=== PATIENT | female | born 1970 | race Hispanic/Latino ===

== ENCOUNTER 2020-05-01 03:22 | Emergency (ER) | payer OTHER, SELFPAY ==
[2020-05-01] MEDS ORDERED: MORPHINE SULFATE 4 MG/1ML SYG ONE (04:18)
[2020-05-01] MEDS ORDERED: ONDANSETRON HCL 4 MG/2 ML VIAL ONE (04:18)
[2020-05-01] MEDS ORDERED: SODIUM CHLORIDE 0.9% 1000ML 1,000 ML IV ONE (04:19)
[2020-05-01 05:04] LABS: BASOPHILS % (AUTO) 0.4 % (0.0-5.0); EOSINOPHILS % (AUTO) 0.8 % (0.0-8.0); HEMATOCRIT 44.4 % (36-48); LYMPHOCYTES % (AUTO) 8.4 % (21.0-51.0); MEAN CORPUSCULAR HEMOGLOBIN 29.5 pg (27.0-33.0); MEAN CORPUSCULAR HGB CONC 33.1 g/dL (32.0-36.0); MEAN CORPUSCULAR VOLUME 89.2 fL (79-99); MONOCYTES % (AUTO) 6.5 % (3.0-13.0); NEUTROPHILS % (AUTO) 82.8 % (40.0-77.0); PLATELET COUNT (AUTO) 287 K/uL (130-400); RED BLOOD CELL COUNT(AUTO) 4.98 MIL/uL (4.00-5.50); RED CELL DISTRIBUTION WIDTH 13.8 % (11.0-15.5); WHITE BLOOD COUNT (AUTO) 19.6 K/uL (4.8-10.8)
[2020-05-01 05:18] LABS: CREATININE 0.9 mg/dL (0.5-1.5); POTASSIUM 3.7 mmol/L (3.5-5.1)
[2020-05-01 05:22] LABS: ALBUMIN 3.6 g/dL (3.5-5.0); BILIRUBIN,TOTAL 0.5 mg/dL (0.2-1.0); TOTAL PROTEIN, SERUM 7.3 g/dL (6.0-8.3)
== END 2020-05-01 07:46 | disposition home or self-care (01) ==
LOC: EDH 03:22
DX: A08.4 Viral intestinal infection, unspecified (principal); I10 Essential (primary) hypertension; Z91.041 Radiographic dye allergy status
CPT/HCPCS: 36415; 74176; 80053; 82150; 83690; 84484; 85025; 87040 ×2; 93005; 96374; 96375; 99285; J2270; J2405; J7030

== ENCOUNTER 2024-08-18 02:08 | Inpatient (IN) | payer BC, SELFPAY ==
[~2024-08-18] VITALS: Ht 167.6 cm; Wt 100.7 kg
[2024-08-18 02:38] LABS: BASOPHILS # (AUTO) 0.05 K/uL (0.00-0.20); BASOPHILS % (AUTO) 0.2 % (0.0-5.0); EOSINOPHILS # (AUTO) 0.07 K/uL (0.00-0.70); EOSINOPHILS % (AUTO) 0.3 % (0.0-8.0); HEMATOCRIT 42.2 % (36-48); IMMATURE GRANULOCYTE ABSOLUTE 0.17 K/uL (0-1); LYMPHOCYTES # (AUTO) 1.7 K/uL (1.0-4.8); LYMPHOCYTES % (AUTO) 7.9 % (21.0-51.0); MEAN CORPUSCULAR HEMOGLOBIN 29.3 pg (27.0-33.0); MEAN CORPUSCULAR HGB CONC 32.9 g/dL (32.0-36.0); MEAN CORPUSCULAR VOLUME 88.8 fL (79-99); MONOCYTES # (AUTO) 1.8 K/uL (0.1-1.0); MONOCYTES % (AUTO) 8.4 % (3.0-13.0); NEUTROPHILS # (AUTO) 17.8 K/uL (1.8-7.7); NEUTROPHILS % (AUTO) 82.4 % (40.0-77.0); PLATELET COUNT (AUTO) 349 K/uL (130-400); RED BLOOD CELL COUNT(AUTO) 4.75 MIL/uL (4.00-5.50); RED CELL DISTRIBUTION WIDTH 13.2 % (11.0-15.5); WHITE BLOOD COUNT (AUTO) 21.6 K/uL (4.8-10.8)
[2024-08-18] MEDS: ketOROlac 15MG/ML VIAL (15MG/ML) IV ONE (02:39)
[2024-08-18 02:40] LABS: APPEARANCE,URINE CLOUDY (CLEAR); BILIRUBIN,URINE NEGATIVE (NEGATIVE); COLOR,URINE YELLOW (YELLOW); GLUCOSE, URINE (UA) NEGATIVE (NEGATIVE); KETONES,URINE 40 mg/dL (NEGATIVE); LEUKOCYTE ESTERASE ,URINE 75 Leu/uL (NEGATIVE); NITRATE,URINE NEGATIVE (NEGATIVE); OCCULT BLOOD,URINE MODERATE (NEGATIVE); PROTEIN,URINE 30 mg/dL (NEGATIVE); UROBILINOGEN,URINE 0.2 mg/dL (0.2-1.0)
[2024-08-18 02:43] LABS: BACTERIA,URINE RARE /HPF (None Seen); MUCUS,URINE RARE LPF (None Seen); SQUAMOUS EPITHELIAL CELL,UR MOD /HPF (0-2)
[2024-08-18 02:49] LABS: CREATININE 0.9 mg/dL (0.5-1.0); POTASSIUM 3.9 mmol/L (3.5-5.1)
[2024-08-18 03:41] LABS: WBC MORPHOLOGY CONSISTENT W/DIFF
[2024-08-18] MEDS: cefTRIAXone 1G VIAL IVPB ONE (03:59)
[2024-08-18] MEDS: [UNRECOGNIZED DRUG - OTHER] IV ONE (03:59)
[2024-08-18] MEDS: levoFLOXacin 500 MG/D5W 100 ML 100 ML IV STA (04:21)
[2024-08-18] MEDS: hydroMORPHone 0.5 MG SYG (0.5MG/0.5ML) IM ONE (04:22)
[2024-08-18] MEDS ORDERED: OMEP40CA21 PO (04:29)
[2024-08-18] MEDS ORDERED: METO-408 PO (04:29)
[2024-08-18] MEDS ORDERED: BUSP15TA3 PO (04:29)
[2024-08-18] MEDS ORDERED: METH-386 PO (04:29)
[2024-08-18] MEDS ORDERED: DULO30CA52 PO (04:29)
[2024-08-18] MEDS ORDERED: AEC81 PO (04:29)
[2024-08-18] MEDS ORDERED: LOSA1TAB37 PO (04:29)
[2024-08-18] MEDS: metRONIDazole 500MG/100ML BAG IV SCH (04:39)
[2024-08-18] MEDS: levoFLOXacin 500 MG/D5W 100 ML 100 ML IV SCH (06:00)
[2024-08-18] MEDS: metRONIDazole 500MG/100ML BAG 100 ML IV SCH (06:00)
[2024-08-18] MEDS ORDERED: MAGNESIUM 2GM PREMIX 50ML 50 ML IV PRN (06:30)
[2024-08-18] MEDS: 0.9%NACL 1000ML 1,000 ML IV SCH (07:47)
[2024-08-18 07:55] LABS: BASOPHILS # (AUTO) 0.03 K/uL (0.00-0.20); BASOPHILS % (AUTO) 0.2 % (0.0-5.0); EOSINOPHILS # (AUTO) 0.08 K/uL (0.00-0.70); EOSINOPHILS % (AUTO) 0.5 % (0.0-8.0); HEMATOCRIT 36.5 % (36-48); IMMATURE GRANULOCYTE ABSOLUTE 0.13 K/uL (0-1); LYMPHOCYTES # (AUTO) 1.2 K/uL (1.0-4.8); LYMPHOCYTES % (AUTO) 6.9 % (21.0-51.0); MEAN CORPUSCULAR HEMOGLOBIN 29.4 pg (27.0-33.0); MEAN CORPUSCULAR HGB CONC 33.4 g/dL (32.0-36.0); MONOCYTES # (AUTO) 1.8 K/uL (0.1-1.0); MONOCYTES % (AUTO) 10.1 % (3.0-13.0); NEUTROPHILS # (AUTO) 14.1 K/uL (1.8-7.7); NEUTROPHILS % (AUTO) 81.5 % (40.0-77.0); PLATELET COUNT (AUTO) 278 K/uL (130-400); RED BLOOD CELL COUNT(AUTO) 4.15 MIL/uL (4.00-5.50); RED CELL DISTRIBUTION WIDTH 13.3 % (11.0-15.5); WHITE BLOOD COUNT (AUTO) 17.3 K/uL (4.8-10.8)
[2024-08-18] MEDS: FAMOTIDINE 20MG VIAL IV SCH (07:59)
[2024-08-18 08:07] LABS: ALBUMIN 2.2 g/dL (3.5-5.0); BILIRUBIN,TOTAL 2.1 mg/dL (0.2-1.0); CREATININE 0.7 mg/dL (0.5-1.0); MAGNESIUM 2.3 mg/dL (1.80-2.40); POTASSIUM 3.5 mmol/L (3.5-5.1); TOTAL PROTEIN, SERUM 6.6 g/dL (6.0-8.3)
[2024-08-18 08:10] LABS: HEMOGLOBIN A1C 6.2 % (4.0-6.0)
[2024-08-18 08:25] VITALS: BP 143/76; PULSE 116; PULSE 64; RESP 16; TEMP 98.2
[2024-08-18] MEDS: ondanSETRON 4MG INJ IV PRN (10:50)
[2024-08-18] MEDS: morPHINE 2 MG SYG IV PRN (10:51)
[2024-08-18 12:00] VITALS: BP 151/75; PULSE 117; RESP 16; TEMP 99.2
[2024-08-18 15:09] VITALS: O2SAT 97
[2024-08-18 16:00] VITALS: BP 148/81; PULSE 111; RESP 16; TEMP 99.3
[2024-08-18] MEDS: morPHINE 4 MG SYG IV PRN (16:18)
[2024-08-18] MEDS ORDERED: ketOROlac 30MG VIAL (30MG/ML) IM PRN (17:30)
[2024-08-18] MEDS: fluCONazole 200 MG/NS 100 ML IV SCH (19:13)
[2024-08-18] MEDS: ZOSYN 3.375GM +NS 50ML IV SCH (19:13)
[2024-08-18 20:00] VITALS: BP 138/75; PULSE 109; RESP 18; TEMP 97.8; O2SAT 96
[2024-08-18] MEDS: duloXETine HCL 30 MG CAP PO SCH (20:06)
[2024-08-18] MEDS: busPIRone HCL 5 MG TABLET PO SCH (20:06)
[2024-08-18] MEDS: methIMAZOLE 10 MG TAB PO SCH (20:08)
[2024-08-18] MEDS: PoTASSium chloRIDE 20MEQ/100ML 100 ML IV PRN (23:06)
[2024-08-19] VITALS (9 sets, daily range): BP systolic 136–171; BP diastolic 78–95; PULSE 85–107; RESP 18–20; TEMP 97.9–99.2; O2SAT 96–97
[2024-08-19 05:41] LABS: CREATININE 0.8 mg/dL (0.5-1.0); POTASSIUM 3.1 mmol/L (3.5-5.1)
[2024-08-19] MEDS: hydroMORPHone 1 MG INJ IVP PRN (06:30)
[2024-08-19 07:45] LABS: HEMATOCRIT 40.8 % (36-48); MEAN CORPUSCULAR HEMOGLOBIN 29.6 pg (27.0-33.0); MEAN CORPUSCULAR HGB CONC 31.9 g/dL (32.0-36.0); MEAN CORPUSCULAR VOLUME 92.9 fL (79-99); PLATELET COUNT (AUTO) 345 K/uL (130-400); RED BLOOD CELL COUNT(AUTO) 4.39 MIL/uL (4.00-5.50); RED CELL DISTRIBUTION WIDTH 13.6 % (11.0-15.5); WHITE BLOOD COUNT (AUTO) 18.9 K/uL (4.8-10.8)
[2024-08-19] MEDS: ASPIRIN 81 MG EC TAB PO SCH (08:33)
[2024-08-19] MEDS: PoTASSium chloRIDE 20MEQ ER 20 MEQ ERTAB PO ONE ×2 (08:33→13:12)
[2024-08-19] MEDS: metOPROLol sucCINATE 25 MG TAB.SR.24H PO SCH (08:34)
[2024-08-19 10:07] LABS: BAND NEUTROPHILS % (MANUAL) 20 % (0-2); LYMPHOCYTES % (MANUAL) 8 % (22-44); MONOCYTES % (MANUAL) 2 % (2-9); REACTIVE LYMPHOCYTES 1 % (0-0); SEGMENTED NEUTROPHILS % 69 % (40-70); TOTAL CELLS COUNTED 100
[2024-08-19 10:08] LABS: MAN.DIFF COMMENT-IMPRESSION MANUAL DIFFERENTIAL; PLATELET MORPHOLOGY COMMENT ADEQUATE
[2024-08-20] VITALS (7 sets, daily range): BP systolic 142–156; BP diastolic 80–94; PULSE 84–105; RESP 16–19; TEMP 98.2–98.7; O2SAT 96–97
[2024-08-20 05:17] LABS: BASOPHILS # (AUTO) 0.05 K/uL (0.00-0.20); BASOPHILS % (AUTO) 0.3 % (0.0-5.0); EOSINOPHILS # (AUTO) 0.24 K/uL (0.00-0.70); EOSINOPHILS % (AUTO) 1.4 % (0.0-8.0); HEMATOCRIT 37.2 % (36-48); IMMATURE GRANULOCYTE ABSOLUTE 0.24 K/uL (0-1); LYMPHOCYTES # (AUTO) 1.7 K/uL (1.0-4.8); MEAN CORPUSCULAR HEMOGLOBIN 28.9 pg (27.0-33.0); MEAN CORPUSCULAR HGB CONC 31.7 g/dL (32.0-36.0); MEAN CORPUSCULAR VOLUME 91.2 fL (79-99); MONOCYTES # (AUTO) 1.1 K/uL (0.1-1.0); MONOCYTES % (AUTO) 6.6 % (3.0-13.0); NEUTROPHILS # (AUTO) 13.3 K/uL (1.8-7.7); NEUTROPHILS % (AUTO) 80.3 % (40.0-77.0); PLATELET COUNT (AUTO) 325 K/uL (130-400); RED BLOOD CELL COUNT(AUTO) 4.08 MIL/uL (4.00-5.50); RED CELL DISTRIBUTION WIDTH 13.2 % (11.0-15.5); WHITE BLOOD COUNT (AUTO) 16.6 K/uL (4.8-10.8)
[2024-08-20 05:35] LABS: BILIRUBIN,TOTAL 0.9 mg/dL (0.2-1.0); CREATININE 0.7 mg/dL (0.5-1.0); POTASSIUM 3.6 mmol/L (3.5-5.1); TOTAL PROTEIN, SERUM 6.6 g/dL (6.0-8.3)
[2024-08-20] MEDS: LOSARTAN/HYDROCHLOROTHIAZIDE 50-12.5MG TABLET PO SCH (09:22)
[2024-08-20] MEDS: PANTOPrazole 40 MG TAB DR PO SCH (09:22)
[2024-08-20] MEDS: PoTASSium chloRIDE 20MEQ ER 20 MEQ ERTAB PO ONE (09:23)
[2024-08-20 16:03] LABS: INR 1.11 (0.85-1.15); PROTHROMBIN TIME 11.9 SEC (9.6-11.6)
[2024-08-21] VITALS: BP 144/84; PULSE 71; RESP 18; TEMP 97.6
[2024-08-21 04:00] VITALS: BP 153/99; PULSE 74; RESP 18; TEMP 97.6
[2024-08-21 06:04] LABS: BASOPHILS # (AUTO) 0.04 K/uL (0.00-0.20); BASOPHILS % (AUTO) 0.4 % (0.0-5.0); EOSINOPHILS # (AUTO) 0.36 K/uL (0.00-0.70); EOSINOPHILS % (AUTO) 3.9 % (0.0-8.0); HEMATOCRIT 38.3 % (36-48); IMMATURE GRANULOCYTE ABSOLUTE 0.24 K/uL (0-1); LYMPHOCYTES # (AUTO) 1.7 K/uL (1.0-4.8); LYMPHOCYTES % (AUTO) 18.4 % (21.0-51.0); MEAN CORPUSCULAR HEMOGLOBIN 29.6 pg (27.0-33.0); MEAN CORPUSCULAR HGB CONC 32.6 g/dL (32.0-36.0); MEAN CORPUSCULAR VOLUME 90.8 fL (79-99); MONOCYTES # (AUTO) 0.6 K/uL (0.1-1.0); MONOCYTES % (AUTO) 6.6 % (3.0-13.0); NEUTROPHILS # (AUTO) 6.3 K/uL (1.8-7.7); NEUTROPHILS % (AUTO) 68.1 % (40.0-77.0); PLATELET COUNT (AUTO) 352 K/uL (130-400); RED BLOOD CELL COUNT(AUTO) 4.22 MIL/uL (4.00-5.50); WHITE BLOOD COUNT (AUTO) 9.3 K/uL (4.8-10.8)
[2024-08-21 06:27] LABS: ALBUMIN 2.2 g/dL (3.5-5.0); BILIRUBIN,TOTAL 0.6 mg/dL (0.2-1.0); CREATININE 0.7 mg/dL (0.5-1.0); POTASSIUM 3.7 mmol/L (3.5-5.1); TOTAL PROTEIN, SERUM 6.8 g/dL (6.0-8.3)
[2024-08-21 08:00] VITALS: BP 159/89; PULSE 86; RESP 19; TEMP 97.6; O2SAT 96
[2024-08-21 12:00] VITALS: BP 153/88; PULSE 74; RESP 19; TEMP 98.1
[2024-08-21 16:00] VITALS: BP 154/86; PULSE 76; RESP 18; TEMP 98.2
[2024-08-21 19:09] LABS: C DIFFICILE TOXIN A/B Not Detected (Not Detected); ENTEROAGGREGATIVE ECOLI Detected (Not Detected); GIARDIA LAMBLIA Not Detected (Not Detected); PLESIOMONAS SHIGELOIDES Not Detected (Not Detected); SAPOVIRUS Not Detected (Not Detected); SHIGELLA/ENTEROINVASIVE E COLI Not Detected (Not Detected); VIBRIO Not Detected (Not Detected); VIBRIO CHOLERAE Not Detected (Not Detected)
[2024-08-21 20:00] VITALS: BP 158/95; PULSE 76; RESP 18; TEMP 98.4; O2SAT 95
[2024-08-22] VITALS (8 sets, daily range): BP systolic 151–159; BP diastolic 80–104; PULSE 70–89; RESP 18; TEMP 97.8–98.9; O2SAT 94–99
[2024-08-23] VITALS (10 sets, daily range): BP systolic 145–164; BP diastolic 83–103; PULSE 69–83; RESP 18; TEMP 97.4–98.3; O2SAT 98–100
[2024-08-23 05:23] LABS: BASOPHILS # (AUTO) 0.06 K/uL (0.00-0.20); BASOPHILS % (AUTO) 0.7 % (0.0-5.0); EOSINOPHILS # (AUTO) 0.29 K/uL (0.00-0.70); EOSINOPHILS % (AUTO) 3.5 % (0.0-8.0); HEMATOCRIT 39.2 % (36-48); IMMATURE GRANULOCYTE ABSOLUTE 0.28 K/uL (0-1); LYMPHOCYTES # (AUTO) 2.8 K/uL (1.0-4.8); LYMPHOCYTES % (AUTO) 33.6 % (21.0-51.0); MEAN CORPUSCULAR HEMOGLOBIN 29.2 pg (27.0-33.0); MEAN CORPUSCULAR HGB CONC 32.1 g/dL (32.0-36.0); MEAN CORPUSCULAR VOLUME 90.7 fL (79-99); MONOCYTES # (AUTO) 0.8 K/uL (0.1-1.0); MONOCYTES % (AUTO) 9.1 % (3.0-13.0); NEUTROPHILS # (AUTO) 4.2 K/uL (1.8-7.7); NEUTROPHILS % (AUTO) 49.7 % (40.0-77.0); PLATELET COUNT (AUTO) 422 K/uL (130-400); RED BLOOD CELL COUNT(AUTO) 4.32 MIL/uL (4.00-5.50); RED CELL DISTRIBUTION WIDTH 12.7 % (11.0-15.5); WHITE BLOOD COUNT (AUTO) 8.3 K/uL (4.8-10.8)
[2024-08-23 05:32] LABS: ALBUMIN 2.3 g/dL (3.5-5.0); BILIRUBIN,TOTAL 0.5 mg/dL (0.2-1.0); CREATININE 0.7 mg/dL (0.5-1.0); POTASSIUM 3.1 mmol/L (3.5-5.1); TOTAL PROTEIN, SERUM 6.7 g/dL (6.0-8.3)
[2024-08-23] MEDS: hydrALAZine 20MG/ML VIAL IV PRN (06:43)
[2024-08-23] MEDS: 0.9%NACL 10ML VIAL IV SCH (08:25)
[2024-08-23] MEDS: amLODIPine 5 MG TAB PO ONE (16:52)
[2024-08-24 04:12] VITALS: BP 156/84; PULSE 85; RESP 18; TEMP 97.8
[2024-08-24 08:00] VITALS: BP 152/85; PULSE 75; RESP 18; TEMP 98.4; O2SAT 98
[2024-08-24] MEDS: amLODIPine 5 MG TAB PO SCH (08:39)
[2024-08-24 12:00] VITALS: BP 148/76; PULSE 70; RESP 18; TEMP 98.1
[2024-08-24 16:00] VITALS: BP 145/83; PULSE 72; RESP 18; TEMP 97.6
[2024-08-24] MEDS ORDERED: AMLO5TAB4 PO (16:13)
== END 2024-08-24 16:44 | disposition home or self-care (01) | DRG 871 ==
LOC: EDH 02:08 → EDHIP 05:58 → 3CH 08:25
PROVIDERS: ADMIT Internal Medicine; ATTEND Internal Medicine
PROC: 05HB33Z Insertion of Infusion Device into Right Basilic Vein, Percutaneous Approach (ICD-10-PCS; principal; 2024-08-21)
PROC: B54MZZA Ultrasonography of Right Upper Extremity Veins, Guidance (ICD-10-PCS; 2024-08-21)
DX: A41.9 Sepsis, unspecified organism (principal); K65.1 Peritoneal abscess; K57.20 Diverticulitis of large intestine with perforation and abscess without bleeding; N30.00 Acute cystitis without hematuria; F41.9 Anxiety disorder, unspecified; F32.A Depression, unspecified; E66.01 Morbid (severe) obesity due to excess calories; I10 Essential (primary) hypertension; E87.6 Hypokalemia; I80.8 Phlebitis and thrombophlebitis of other sites; E11.649 Type 2 diabetes mellitus with hypoglycemia without coma; E05.90 Thyrotoxicosis, unspecified without thyrotoxic crisis or storm; Z82.49 Family history of ischemic heart disease and other diseases of the circulatory system; Z90.710 Acquired absence of both cervix and uterus; Z90.49 Acquired absence of other specified parts of digestive tract; Z98.51 Tubal ligation status; Z83.3 Family history of diabetes mellitus; Z79.899 Other long term (current) drug therapy; Z68.35 Body mass index [BMI] 35.0-35.9, adult
CPT/HCPCS: 36415; 36569; 74176; 77012; 80048; 80053; 81001; 82270; 82550; 82948; 83036; 83605; 83735; 84145; 84484; 85025; 85610; 87040; 87046; 87086; 87507; 93971; 96365; 96366; 96372; 96375; 96376; 99291; C1894; G0378; J0360; J0696; J1171; J1450; J1885; J1956; J2270; J2405; J2543; J3480; J3490; J7030; C1750; G8980-CI; G8983-CI

== ENCOUNTER 2024-09-03 12:52 | Emergency (ER) | payer BC ==
[~2024-09-03] VITALS: Ht 167.6 cm; Wt 99.8 kg
[~2024-09-03 12:52] MED LIST: AEC81 PO; AMLO5TAB4 PO; BUSP15TA3 PO; DULO30CA52 PO; LOSA1TAB37 PO; METH-386 PO; METO-408 PO; OMEP40CA21 PO
[2024-09-03 14:05] VITALS: BP 155/91; PULSE 86; RESP 16; TEMP 98.1; O2SAT 98
== END 2024-09-03 15:15 | disposition home or self-care (01) ==
LOC: EDH 12:52
DX: T82.534A Leakage of infusion catheter, initial encounter (principal); F41.9 Anxiety disorder, unspecified; I10 Essential (primary) hypertension; Z79.82 Long term (current) use of aspirin; Z79.899 Other long term (current) drug therapy; Z90.49 Acquired absence of other specified parts of digestive tract; Z90.710 Acquired absence of both cervix and uterus; Y82.9 Unspecified medical devices associated with adverse incidents; Y92.89 Other specified places as the place of occurrence of the external cause
CPT/HCPCS: 99282

== ENCOUNTER 2024-09-09 22:36 | Emergency (ER) | payer BC ==
[~2024-09-09] VITALS: Ht 167.6 cm; Wt 99.8 kg
[2024-09-10 00:18] VITALS: BP 128/83; PULSE 81; RESP 18; TEMP 97.3; O2SAT 98
== END 2024-09-10 00:19 | disposition home or self-care (01) ==
LOC: EDH 22:36
DX: T82.838A Hemorrhage due to vascular prosthetic devices, implants and grafts, initial encounter (principal); F41.9 Anxiety disorder, unspecified; I10 Essential (primary) hypertension; Z79.82 Long term (current) use of aspirin; Z79.899 Other long term (current) drug therapy; Z90.49 Acquired absence of other specified parts of digestive tract; Z90.710 Acquired absence of both cervix and uterus; X58.XXXA Exposure to other specified factors, initial encounter
CPT/HCPCS: 99281

== ENCOUNTER 2024-09-10 15:46 | Emergency (ER) | payer BC ==
[~2024-09-10] VITALS: Ht 167.6 cm; Wt 99.8 kg
[2024-09-10 15:51] VITALS: BP 150/89; PULSE 90; RESP 16; TEMP 97.7
== END 2024-09-10 16:46 | disposition home or self-care (01) ==
LOC: EDH 15:46
DX: T82.898A Other specified complication of vascular prosthetic devices, implants and grafts, initial encounter (principal); F41.9 Anxiety disorder, unspecified; I10 Essential (primary) hypertension; Z79.82 Long term (current) use of aspirin; Z79.899 Other long term (current) drug therapy; Z90.49 Acquired absence of other specified parts of digestive tract; Z90.710 Acquired absence of both cervix and uterus; Z98.890 Other specified postprocedural states; Y65.8 Other specified misadventures during surgical and medical care; Y92.89 Other specified places as the place of occurrence of the external cause
CPT/HCPCS: 99282

== ENCOUNTER 2024-09-18 21:51 | Emergency (ER) | payer BC ==
[~2024-09-18] VITALS: Ht 167.6 cm; Wt 99.8 kg
[2024-09-18 22:05] VITALS: TEMP 98.7
[2024-09-18 22:10] LABS: APPEARANCE,URINE CLOUDY (CLEAR); BILIRUBIN,URINE NEGATIVE (NEGATIVE); COLOR,URINE YELLOW (YELLOW); GLUCOSE, URINE (UA) NEGATIVE (NEGATIVE); KETONES,URINE 10 mg/dL (NEGATIVE); LEUKOCYTE ESTERASE ,URINE 250 Leu/uL (NEGATIVE); NITRATE,URINE NEGATIVE (NEGATIVE); OCCULT BLOOD,URINE SMALL (NEGATIVE); PH,URINE 5.5 (5.0-8.0); PROTEIN,URINE 50 mg/dL (NEGATIVE); UROBILINOGEN,URINE 0.2 mg/dL (0.2-1.0)
[2024-09-18 22:16] LABS: ADD UA MICROSCOPIC YES
[2024-09-18 22:17] LABS: BACTERIA,URINE RARE /HPF (None Seen); MUCUS,URINE FEW LPF (None Seen); OTHER CASTS, URINE 3 /LPF (None Seen); SQUAMOUS EPITHELIAL CELL,UR MOD /HPF (0-2); UNCLASSIFIED CRYSTAL 16 /HPF (None Seen)
[2024-09-18] MEDS: morPHINE 4 MG SYG IVP ONE (22:27)
[2024-09-18] MEDS: ondanSETRON 4MG INJ IVP ONE ×2 (22:27→23:13)
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
[2024-09-18 22:33] LABS: BASOPHILS # (AUTO) 0.03 K/uL (0.00-0.20); BASOPHILS % (AUTO) 0.3 % (0.0-5.0); EOSINOPHILS # (AUTO) 0.27 K/uL (0.00-0.70); EOSINOPHILS % (AUTO) 2.6 % (0.0-8.0); IMMATURE GRANULOCYTE ABSOLUTE 0.06 K/uL (0-1); LYMPHOCYTES # (AUTO) 2.2 K/uL (1.0-4.8); LYMPHOCYTES % (AUTO) 21.1 % (21.0-51.0); MEAN CORPUSCULAR HEMOGLOBIN 29.5 pg (27.0-33.0); MEAN CORPUSCULAR HGB CONC 32.8 g/dL (32.0-36.0); MEAN CORPUSCULAR VOLUME 89.8 fL (79-99); MONOCYTES # (AUTO) 0.7 K/uL (0.1-1.0); MONOCYTES % (AUTO) 6.5 % (3.0-13.0); NEUTROPHILS # (AUTO) 7.1 K/uL (1.8-7.7); NEUTROPHILS % (AUTO) 68.9 % (40.0-77.0); PLATELET COUNT (AUTO) 267 K/uL (130-400); RED BLOOD CELL COUNT(AUTO) 5.12 MIL/uL (4.00-5.50); WHITE BLOOD COUNT (AUTO) 10.2 K/uL (4.8-10.8)
[2024-09-18 22:36] LABS: CREATININE 0.9 mg/dL (0.5-1.0); POTASSIUM 3.5 mmol/L (3.5-5.1)
[2024-09-18 22:48] LABS: ALBUMIN 3.8 g/dL (3.5-5.0); BILIRUBIN,DIRECT 0.2 mg/dL (0.0-0.3); TOTAL PROTEIN, SERUM 7.9 g/dL (6.0-8.3)
[2024-09-18] MEDS: ketOROlac 30MG VIAL (30MG/ML) IVP ONE (22:54)
[2024-09-18] MEDS ORDERED: IOHEXOL 350 MG/ML 100ML INFUS..BTL IV ONE (23:09)
--- NOTE | 2024-09-18 23:40 | HMCIMG ---
CT ABDOMEN/PELVIS W/CONTRAST HISTORY: Pain COMPARISON: 08/19/2024 TECHNIQUE: Multiple sequential axial images of the abdomen and pelvis were obtained from the dome of the diaphragm through symphysis pubis. Patient was given 100 cc of Omnipaque through intravenous route. Oral contrast was not given. FINDINGS: No pleural effusion is seen bilaterally. There is no evidence of parenchymal disease or pulmonary nodule of the visualized lower lungs. Degenerative changes of the thoracolumbar spine are present. The heart is not enlarged. Liver measures 16.2 cm. The liver, spleen, adrenal glands and pancreas are unremarkable. There is no evidence of hydronephrosis bilaterally. No evidence of renal stone is seen. Fecal material is seen in the colon. There are normal size retroperitoneal and mesenteric lymph nodes. No ascites is seen. Atherosclerotic changes are present. There is mild sigmoid colon wall thickening with adjacent fat stranding suspicious for acute sigmoid diverticulitis. No focal abscess is seen. Pelvic sidewalls are symmetric bilaterally. Bladder is poorly distended. If there is clinical suspicion for cystitis, urinalysis correlation may be helpful IMPRESSION: 1. There is mild sigmoid colon wall thickening with adjacent fat stranding suspicious for acute sigmoid diverticulitis. No focal abscess is seen. CT was performed with one or more following dose reduction techniques: automated exposure control, adjustment of the mA and kv according to patient's size, or use of a iterative reconstruction technique.
[2024-09-19 00:36] VITALS: BP 148/83; PULSE 81; RESP 20; O2SAT 100
== END 2024-09-19 00:41 | disposition home or self-care (01) ==
LOC: EDH 21:51
DX: K57.32 Diverticulitis of large intestine without perforation or abscess without bleeding (principal); F41.9 Anxiety disorder, unspecified; F32.A Depression, unspecified; I10 Essential (primary) hypertension; Z79.82 Long term (current) use of aspirin; Z79.899 Other long term (current) drug therapy; Z90.49 Acquired absence of other specified parts of digestive tract; Z90.710 Acquired absence of both cervix and uterus
CPT/HCPCS: 99284; 74177; 96374; 96375; 80076; 80048; 83690; 85025; 87086 ×2; 87186; 81001; 36415; 96376; J2405 ×2; J2270; J1885; Q9967

== ENCOUNTER 2024-10-06 13:00 | Emergency (ER) | payer OTHER, BC ==
[~2024-10-06] VITALS: Ht 167.6 cm; Wt 99.8 kg
[2024-10-06 13:04] VITALS: BP 141/78
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
[2024-10-06] MEDS ORDERED: IBUP-2077 PO (13:33)
[2024-10-06] MEDS ORDERED: CYCL-309 PO (13:33)
[2024-10-06] MEDS: CYCLOBENZAPRINE HCL 10 MG TABLET PO ONE (13:38)
[2024-10-06] MEDS: ibuPROFEN 800 MG TAB PO ONE (13:38)
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
[2024-10-06 14:03] VITALS: PULSE 77; RESP 15; TEMP 98.1; O2SAT 100
== END 2024-10-06 14:20 | disposition home or self-care (01) ==
LOC: EDH 13:00
DX: S16.1XXA Strain of muscle, fascia and tendon at neck level, initial encounter (principal); I10 Essential (primary) hypertension; F41.9 Anxiety disorder, unspecified; F32.A Depression, unspecified; Z79.82 Long term (current) use of aspirin; Z79.899 Other long term (current) drug therapy; Z90.49 Acquired absence of other specified parts of digestive tract; Z90.710 Acquired absence of both cervix and uterus; Z98.890 Other specified postprocedural states; V49.9XXA Car occupant (driver) (passenger) injured in unspecified traffic accident, initial encounter; Y93.89 Activity, other specified; Y92.488 Other paved roadways as the place of occurrence of the external cause; Y99.8 Other external cause status
CPT/HCPCS: 72040; 99283

== ENCOUNTER 2024-10-25 07:49 | Inpatient (IN) | payer BC ==
[~2024-10-25] VITALS: Ht 167.6 cm; Wt 99.0 kg
[~2024-10-25 07:49] MED LIST changes: +CYCL-309 PO; +IBUP-2077 PO
[2024-10-25] MEDS ORDERED: IOHEXOL 350 MG/ML 100ML INFUS..BTL IV ONE (07:59)
--- NOTE | 2024-10-25 08:09 | ERN ---
General Chief Complaint: Abdominal Pain Stated Complaint: LLQ PAIN Time Seen by MD: 07:51 History of Present Illness Initial Comments 54F, hx diverticulitis, presents for left lower quadrant tenderness. Patient reports that yesterday she noticed some left lower quadrant tenderness. She was constipated initially and then had a few episodes of loose stools. She also reports some suprapubic discomfort. She denies any nausea or vomiting. She denies any fever, but she does report feeling generally weak. She reports that she had a complicated diverticulitis few months ago which had an abscess and she required IV antibiotics through a PICC line for almost a month. She reports that she has been feeling well since but is worried that she may have a flare-up of the diverticulitis. Allergies: Coded Allergies: No Known Allergies (Unverified Allergy, Unknown, 08/18/24) Home Meds Active Scripts Ibuprofen (Ibuprofen 800 mg Tab) 800 Mg Tab, 800 MG PO Q8H PRN for fever or pa in, #30 TAB 0 Refills Prov:JOSI HAYNES NP 10/06/24 Cyclobenzaprine HCl (Cyclobenzaprine HCl) 10 Mg Tablet, 1 TAB PO TID for muscle spasms for 10 Days, #30 TAB 0 Refills Prov:JOSI HAYNES NP 10/06/24 Amlodipine Besylate (Norvasc 5Mg Tab) 5 Mg Tablet, 5 MG PO DAILY for 30 Days, #30 TAB Prov:SUKUMAR HOLLIS [employer] 08/24/24 Reported Medications Aspirin (ASPIRIN 81 MG ECTAB) 81 Mg Ectab, 81 MG PO DAILY, TAB.EC 08/18/24 Duloxetine HCl (Duloxetine HCl) 30 Mg Capsule.dr, 30 MG PO BID, CAP 08/18/24 Metoprolol Succinate (Metoprolol Succinate) 25 Mg Tab.er.24h, 25 MG PO DAILY, TAB 08/18/24 Methimazole (Methimazole) 5 Mg Tablet, 5 MG PO TID, TAB 08/18/24 Omeprazole (Omeprazole) 40 Mg Capsule.dr, 40 MG PO DAILY, CAP 08/18/24 Buspirone HCl (Buspirone HCl) 15 Mg Tablet, 15 MG PO BID, TAB 08/18/24 Losartan/Hydrochlorothiazide (Losartan-Hctz 50-12.5 mg Tab) 50 Mg-12.5 Mg Tablet, 1 EACH PO DAILY, TAB 08/18/24 Past Medical History Past Medical History: Anxiety, Depression, Diverticulitis, UTI Medical History Other: E-COLI Past Surgical History: Hysterectomy, Cholecystectomy, BTL Surgical History Other: RT 5TH DIGIT SX Female( History) History: Not Applicable ROS Dictation CONSTITUTIONAL: No chills, no fever, no weakness, no diaphoresis, no malaise. HEAD/FACE: No signs of trauma. EENT: No eye pain, no blurred vision, no tearing, no double vision, no ear pain, no ear discharge, no nose pain, no nasal congestion, no throat pain, no throat swelling, no mouth pain. RESPIRATORY: No cough, no orthopnea, no SOB, no stridor, no wheezing. CARDIOVASCULAR: No chest pain, no edema, no palpitations, no syncope. GASTROINTESTINAL/ABDOMINAL: Left lower quadrant pain, diarrhea GENITOURINARY: No abnormal discharge, no dysuria, no frequent urination, no hematuria. No complaints of pain in the genitals. MUSCULOSKELETAL: No back pain, no gout, no joint pain, no joint swelling, no muscle pain, no muscle stiffness, no neck pain. INTEGUMENTARY: No change in color, no change in hair/nails, no dryness, no lesion, no lumps, no rash. NEUROLOGICAL/PSYCH: No anxiety, not depressed, no emotional problem, no headache, no numbness, no pre-existing deficit, no history of seizures, no tremors, no weakness. HEMATOLOGIC/LYMPHATIC: Not anemic, no history of blood clots, no apparent bleeding, no bruising, glands not swollen. All Systems Negative, Except as Noted. Physical Exam Physical Exam Dictation VITAL SIGNS: Reviewed. GENERAL APPEARANCE: Alert, oriented x3, no acute distress, obese. HEAD AND FACE: Non-traumatic. EYES: PERRL, pink conjunctivas, eyelid no trauma, anterior chamber clear. EARS: Pinnas intact and no signs of trauma or erythema. Ear canals clear and no discharge. TMs no erythema. NOSE: No discharge, no bleeding. OROPHARYNX: Mouth normal, teeth no caries, tongue pink. Pharynx clear, no erythema. Tonsils no exudates, no abscesses noted. Mucous membrane moist. NECK: Supple, non-tender, no thyromegaly, no masses, no JVD, no bruits. BREAST: Deferred. CHEST: No tenderness, no crepitus, no paradoxical movement, no retractions. LUNGS: Clear, well-ventilated, symmetric, no rales, no wheezing, no rhonchi, no stridor, good breath sounds bilaterally. HEART: Regular rate, regular rhythm, no murmur, no gallops. VASCULAR: No peripheral edema. ABDOMEN: Left lower quadrant tenderness. RECTAL: Deferred. GENITAL: Deferred. NEUROLOGICAL: Normal speech, gross motor function intact, gross sensory function intact. MUSCULOSKELETAL: Neck nontender, full range of motion, back nontender, full range of motion. EXTREMITIES: Nontender, full range of motion. SKIN: Color pink, dry, no turgor, no rash, no lacerations, no abrasions, no contusions. LYMPHATICS: Deferred. Results Laboratory and Microbiology Lab and Micro Result Laboratory Tests Test 10/25/24 08:43 10/25/24 08:47 Urine Color DARK-YELLOW (YELLOW) Urine Appearance CLOUDY (CLEAR) H Urine pH 6.0 (5.0-8.0) Urine Specific [place] 1.028 (1.001-1.031) Urine Protein 70 mg/dL (NEGATIVE) H Urine Glucose (UA) NEGATIVE mg/dL (NEGATIVE) Urine Ketones 5 mg/dL (NEGATIVE) H Urine Occult Blood SMALL (NEGATIVE) H Urine Nitrate NEGATIVE (NEGATIVE) Urine Bilirubin 0.5 mg/dL (NEGATIVE) H Urine Urobilinogen 4.0 mg/dL (0.2-1.0) H Urine Leukocyte Esterase 500 Diane/uL (NEGATIVE) H Urine RBC 11-25 /HPF (0-1) H Urine WBC 51-100 /HPF (0-1) H Urine Squamous Epithelial Cells MANY /HPF (0-2) Urine Bacteria RARE /HPF (None Seen) White Blood Count 15.7 K/uL (4.8-10.8) H Red Blood Count 4.49 MIL/uL (4.00-5.50) Hemoglobin 13.1 g/dL (12.0-16.0) Hematocrit 40.7 % (36-48) Mean Corpuscular Volume 90.6 fL (79-99) Mean Corpuscular Hemoglobin 29.2 pg (27.0-33.0) Mean Corpuscular Hemoglobin Concent 32.2 g/dL (32.0-36.0) Red Cell Distribution Width 14.2 % (11.0-15.5) Platelet Count 327 K/uL (130-400) Mean Platelet Volume 9.9 fL (7.5-10.5) Immature Granulocyte % (Auto) 0.8 % (0-1) Neutrophils (%) (Auto) 80.4 % (40.0-77.0) H Lymphocytes (%) (Auto) 9.4 % (21.0-51.0) L Monocytes (%) (Auto) 8.4 % (3.0-13.0) Eosinophils (%) (Auto) 0.7 % (0.0-8.0) Basophils (%) (Auto) 0.3 % (0.0-5.0) Neutrophils # (Auto) 12.6 K/uL (1.8-7.7) H Lymphocytes # (Auto) 1.5 K/uL (1.0-4.8) Monocytes # (Auto) 1.3 K/uL (0.1-1.0) H Eosinophils # (Auto) 0.11 K/uL (0.00-0.70) Basophils # (Auto) 0.04 K/uL (0.00-0.20) Absolute Immature Granulocyte (auto 0.12 K/uL (0-1) Nucleated Red Blood Cells 0.0 % (0.0-0.19) Sodium Level 140 mmol/L (136-145) Potassium Level 3.4 mmol/L (3.5-5.1) L Chloride Level 102 mmol/L (101-111) Carbon Dioxide Level 32 mmol/L (21-32) Blood Urea Nitrogen 12 mg/dL (7-18) Creatinine 0.8 mg/dL (0.5-1.0) Glomerular Filtration Rate Calc 86 mL/min (>90) Random Glucose 127 mg/dL (70-105) H Total Calcium 8.8 mg/dL (8.5-10.1) Total Bilirubin 1.6 mg/dL (0.2-1.0) H Direct Bilirubin 0.5 mg/dL (0.0-0.3) H Aspartate Amino Transf (AST/SGOT) 101 U/L (10-37) H Alanine Aminotransferase (ALT/SGPT) 82 U/L (12-78) H Alkaline Phosphatase 222 U/L (50-136) H Troponin I High Sensitivity < 4 ng/L (4-50) L Total Protein 7.4 g/dL (6.0-8.3) Albumin 3.0 g/dL (3.5-5.0) L Lipase 21 U/L (16-77) MDM CC: LLQ pain, diarrhea Historian: Patient Comorbidities: History of diverticulitis, anxiety, depression, hypothyroid, hypertension Limitations by social determinants of health: None Differential diagnosis: Diverticulitis, gastroenteritis, colitis, surgical pathology, SIRS, sepsis, other. External chart review: I reviewed the cannulas history and physical from August 18, 2024. At that time she had a similar presentation and was diagnosed with acute diverticulitis of the large intestine with an abscess. She was discharged on 08/24/2024 from this facility. I reviewed the discharge notes. She was diagnosed with a acute diverticulitis of large intestine is with abscess unsuccessful for aspiration and percutaneous drainage. Patient at that time was discharged with three weeks of IV antibiotics as an outpatient with Dr. Horta. She completed this course. Vital signs: Stable, remained stable in the ER. Labs (independently ordered and independently interpreted by me ): Leukocytosis 15.7 1000 left shift 80% neutrophils. No bands. No anemia. Metabolic panels unremarkable. Mild transaminitis. Mild elevation T bili 1.6. Lipase is normal. UA does show leukocyte esterase, possibly due to the diverticulitis. CT of the abdomen and pelvis with contrast (Independently interpreted by me ): significant for likely diverticulitis. I do not see any free air perforation. Possibly an abscess. Patient received 1 L normal saline, 4 mg of morphine IV, 4 mg of ondansetron IV, and was started on Zosyn 3.375 q.8h IV. We will admit for IV antibiotics and consultation. Patient updated, agrees with the plan Consultation: Hospitalist for admission. CT ABDOMEN/PELVIS W/CONTRAST REASON: Abdominal Pain COMPARISON: 08/18/2024 TECHNIQUE: Images are obtained from lung bases to symphysis pubis following IV contrast, 100 cc Omnipaque 350. FINDINGS: Lung bases are clear. There are no focal liver lesions. There are normal-appearing kidneys.. Spleen and pancreas appear unremarkable. There has been a previous cholecystectomy. There is moderate diverticulosis of the sigmoid colon. There are inflammatory changes in the mid sigmoid colon consistent with acute diverticulitis. There is a focal fluid collection which appears to be in the wall of the mid sigmoid colon, consistent with abscess, this measures 2.6 x 1.6 cm. There is no free air or fluid to suggest perforation. Colon appears otherwise unremarkable. There is no evidence of obstruction. There has been a previous appendectomy. There is no evidence of free fluid or intraperitoneal air. There are no focal fluid collections. Aorta and retroperitoneum appear normal as do pelvic soft tissue structures. The anterior abdominal wall is intact. Osseous structures appear unremarkable. IMPRESSION: 1. Findings consistent with diverticulitis of the mid sigmoid colon. 2. There is a focal fluid collection and the wall of the sigmoid, 1.6 x 2.6 cm which may be an early diverticular abscess. 3. Absent gallbladder and appendix. ED Course Orders Procedure Category Date Status Time Cbc With Differential LAB 10/25/24 In Process 07:54 Troponin I High LAB 10/25/24 Complete Sensitivity 07:54 Urinalysis Profile LAB 10/25/24 Complete 07:54 Ct Abdomen/Pelvis CT 10/25/24 Resulted W/Contrast 07:54 Lipase LAB 10/25/24 Complete 07:54 Basic Metabolic Panel LAB 10/25/24 Complete 07:54 Hepatic Function Panel LAB 10/25/24 Complete 07:54 Iohexol (Omnipaque) PHA 10/25/24 Complete 07:59 0.9%Nacl 1000ml (Ns PHA 10/25/24 Complete 1000ml) 08:30 Morphine 4mg Syg PHA 10/25/24 Complete (Morphine 4mg Syg) 08:30 Ondansetron 4mg Inj PHA 10/25/24 Complete (Zofran 4mg Inj) 09:00 Culture Urine KEARA 10/25/24 In Process 09:31 Zosyn 3.375gm+Ns 50ml PHA 10/25/24 In Process (Zosyn 3.375gm+Ns 11:00 Current Medications Medications (Trade) Dose Ordered Sig/Abbe Route PRN Reason Start Time Stop Time Status Last Admin Dose Admin Iohexol (Omnipaque) 35,000 mg STK-MED ONCE IV 10/25/24 07:59 10/25/24 07:59 DC Morphine Sulfate (morPHINE 4MG SYG) 4 mg ONCE ONCE IVP 10/25/24 08:30 10/25/24 08:31 DC 10/25/24 08:57 Ondansetron HCl (zoFRAN 4MG INJ) 4 mg ONCE ONCE IVP 10/25/24 09:00 10/25/24 09:01 DC 10/25/24 08:56 Piperacillin Sod/ Tazobactam Sod (Zosyn 3.375gm+NS 50ml) 3.375 gm Q8H IV 10/25/24 11:00 11/04/24 10:59 10/25/24 11:11 Sodium Chloride 1,000 ml @ 0 mls/hr ONCE ONCE IV 10/25/24 08:30 10/25/24 08:31 DC 10/25/24 09:59 Vital Signs Date Time Temp Pulse Resp B/P (MAP) Pulse Ox O2 Delivery O2 Flow Rate FiO2 10/25/24 11:00 98.8 61 18 119/61 99 Room Air* 0 21 10/25/24 10:00 98.8 61 18 117/60 99 Room Air* 0 21 10/25/24 09:00 98.8 69 18 120/62 99 Room Air* 0 21 10/25/24 08:00 98.8 68 18 121/66 99 Room Air* 0 21 10/25/24 07:50 98.2 95 16 119/72 99 Room Air 0 DX & DISP Disposition: Inpatient Departure Impression: Primary Impression: Diverticulitis of large intestine with abscess Additional Impression: UTI (urinary tract infection) Condition: Stable Referrals: RONNELL VILLALPANDO DO (PCP) JOHNNY CARVAJAL DO Oct 25, 2024 08:09
[2024-10-25] MEDS: ondanSETRON 4MG INJ IVP ONE (08:56)
[2024-10-25] MEDS: morPHINE 4 MG SYG IVP ONE (08:57)
[2024-10-25 09:02] LABS: BASOPHILS # (AUTO) 0.04 K/uL (0.00-0.20); BASOPHILS % (AUTO) 0.3 % (0.0-5.0); EOSINOPHILS # (AUTO) 0.11 K/uL (0.00-0.70); EOSINOPHILS % (AUTO) 0.7 % (0.0-8.0); HEMATOCRIT 40.7 % (36-48); IMMATURE GRANULOCYTE ABSOLUTE 0.12 K/uL (0-1); LYMPHOCYTES # (AUTO) 1.5 K/uL (1.0-4.8); LYMPHOCYTES % (AUTO) 9.4 % (21.0-51.0); MEAN CORPUSCULAR HEMOGLOBIN 29.2 pg (27.0-33.0); MEAN CORPUSCULAR HGB CONC 32.2 g/dL (32.0-36.0); MEAN CORPUSCULAR VOLUME 90.6 fL (79-99); MONOCYTES # (AUTO) 1.3 K/uL (0.1-1.0); MONOCYTES % (AUTO) 8.4 % (3.0-13.0); NEUTROPHILS # (AUTO) 12.6 K/uL (1.8-7.7); NEUTROPHILS % (AUTO) 80.4 % (40.0-77.0); PLATELET COUNT (AUTO) 327 K/uL (130-400); RED BLOOD CELL COUNT(AUTO) 4.49 MIL/uL (4.00-5.50); RED CELL DISTRIBUTION WIDTH 14.2 % (11.0-15.5); WHITE BLOOD COUNT (AUTO) 15.7 K/uL (4.8-10.8)
[2024-10-25 09:15] LABS: CREATININE 0.8 mg/dL (0.5-1.0); POTASSIUM 3.4 mmol/L (3.5-5.1)
[2024-10-25 09:26] LABS: APPEARANCE,URINE CLOUDY (CLEAR); BILIRUBIN,URINE 0.5 mg/dL (NEGATIVE); COLOR,URINE DARK-YELLOW (YELLOW); GLUCOSE, URINE (UA) NEGATIVE (NEGATIVE); KETONES,URINE 5 mg/dL (NEGATIVE); LEUKOCYTE ESTERASE ,URINE 500 Leu/uL (NEGATIVE); NITRATE,URINE NEGATIVE (NEGATIVE); OCCULT BLOOD,URINE SMALL (NEGATIVE); PROTEIN,URINE 70 mg/dL (NEGATIVE)
[2024-10-25 09:27] LABS: BILIRUBIN,DIRECT 0.5 mg/dL (0.0-0.3); BILIRUBIN,TOTAL 1.6 mg/dL (0.2-1.0); TOTAL PROTEIN, SERUM 7.4 g/dL (6.0-8.3)
[2024-10-25 09:31] LABS: ADD UA MICROSCOPIC YES
[2024-10-25 09:39] LABS: BACTERIA,URINE RARE /HPF (None Seen); MUCUS,URINE MANY LPF (None Seen); SQUAMOUS EPITHELIAL CELL,UR MANY /HPF (0-2); WBC,URINE 51-100 /HPF (0-1)
[2024-10-25] MEDS: 0.9%NACL 1000ML 1,000 ML IV ONE (09:59)
--- NOTE | 2024-10-25 11:07 | HMCIMG ---
CT ABDOMEN/PELVIS W/CONTRAST REASON: Abdominal Pain COMPARISON: 08/18/2024 TECHNIQUE: Images are obtained from lung bases to symphysis pubis following IV contrast, 100 cc Omnipaque 350. FINDINGS: Lung bases are clear. There are no focal liver lesions. There are normal-appearing kidneys.. Spleen and pancreas appear unremarkable. There has been a previous cholecystectomy. There is moderate diverticulosis of the sigmoid colon. There are inflammatory changes in the mid sigmoid colon consistent with acute diverticulitis. There is a focal fluid collection which appears to be in the wall of the mid sigmoid colon, consistent with abscess, this measures 2.6 x 1.6 cm. There is no free air or fluid to suggest perforation. Colon appears otherwise unremarkable. There is no evidence of obstruction. There has been a previous appendectomy. There is no evidence of free fluid or intraperitoneal air. There are no focal fluid collections. Aorta and retroperitoneum appear normal as do pelvic soft tissue structures. The anterior abdominal wall is intact. Osseous structures appear unremarkable. IMPRESSION: 1. Findings consistent with diverticulitis of the mid sigmoid colon. 2. There is a focal fluid collection and the wall of the sigmoid, 1.6 x 2.6 cm which may be an early diverticular abscess. 3. Absent gallbladder and appendix. CT was performed with one or more following dose reduction techniques: automated exposure control, adjustment of the mA and kv according to patient's size, or use of a iterative reconstruction technique.
[2024-10-25] MEDS: ZOSYN 3.375GM +NS 50ML IV SCH (11:11)
[2024-10-25] MEDS ORDERED: MAGNESIUM 2GM PREMIX 50ML 50 ML IV PRN (12:00)
[2024-10-25] MEDS ORDERED: PoTASSium chloRIDE 20MEQ/100ML 100 ML IV PRN (12:00)
[2024-10-25 12:08] LABS: HEMOGLOBIN A1C 6.2 % (4.0-6.0)
[2024-10-25 12:16] LABS: THYROID STIMULATING HORMONE 0.47 uIU/mL (0.36-3.74)
--- NOTE | 2024-10-25 13:02 | HP ---
[facility] HISTORY AND PHYSICAL Date of Service: Oct 25, 2024 Time of Service: 12:54 HISTORY OF PRESENT ILLNESS: 54-year-old female with past medical history of hyperthyroidism, hypertension, history of anxiety, depression who presented to the hospital secondary to abdominal pain. The patient states her abdominal pain is located in the left and right lower quadrant. Pain started yesterday and would radiate down to her suprapubic and groin area. She had associated nausea without any episodes of vomiting. She denied any fever, chills, chest pain, shortness of breath, falls. She had also noted episodes of diarrhea at home with around 4-5 episodes. The patient was recently hospitalized in [facility] around September 02, 2024 secondary to acute diverticulitis with concern for abscess. She was treated with antibiotics and was transition to p.o. and discharged home. She has not had colonoscopy yet. She has recently been on oral antibiotics for urinary tract infection. Labs were notable for white count of 15.7, hemoglobin was 13.1, platelet count was 327 K, sodium was 140, potassium was 3.4, CR 0.8 REVIEW OF SYSTEMS CONSTITUTIONAL: Denies fevers, chills, or night sweats. No unintentional weight loss reported. NEUROLOGICAL: Denies headache, amaurosis fugax, motor weakness, sensory deficit, vertigo/spinning sensation, gait abnormalities, or tremors. ENT: No hearing loss, otalgia, otorrhea, rhinitis, rhinorrhea, hoarseness, or sore throat. CARDIOVASCULAR: Denies any exertional angina, dyspnea on exertion, orthopnea, paroxysmal nocturnal dyspnea, palpitations, life-threatening arrhythmias, claudication. PULMONARY: Denies any shortness of breath, cough, phlegm/sputum, hemoptysis, pleuritic chest pain. GASTROINTESTINAL: Positive for abdominal pain, diarrhea, nausea. Denied any hematemesis, hematochezia, melena. GENITOURINARY: Denies frequency, urgency, nocturia, hematuria or incontinence (Storage/Irritative symptoms.) Low urinary stream, straining to void, urinary intermittency or hesitancy, splitting of the voiding stream, terminal dribbling. ENDOCRINOLOGIC: Denies polyuria, polydipsia, polyphagia or heat/cold intolerances. HEMATOLOGIC: Denies thrombophilia/previous clots, or coagulopathy/bleeding disorders. ONCOLOGIC: Denies personal history of malignancy. DERMATOLOGIC: Denies rashes or pruritus. PSYCHIATRIC: Denies any suicidal or homicidal ideation. Denies hallucinations. PAST MEDICAL HISTORY: Hypertension, hyperthyroidism, history of anxiety, depression PAST SURGICAL HISTORY: Hysterectomy, cholecystectomy, BTL, history of cyst removal in the 5th digit of the right hand PAST SOCIAL HISTORY: Denied smoking, drug use FAMILY HISTORY: Denied any pertinent family history Coded Allergies: No Known Allergies (Unverified Allergy, Unknown, 08/18/24) PHYSICAL EXAM GENERAL APPEARANCE: The patient is awake, alert, and oriented, in no acute cardiopulmonary distress. NEUROLOGICAL: Cranial nerves II-XII grossly intact. Motor is 5/5 in bilateral upper and lower extremities proximal to distal. No sensory deficits. HEENT: Face is symmetric. Pupils are equal and reactive. Extraocular movements are intact. NECK: Supple. No JVD. No thyromegaly. No submental, submandibular, pre- /postauricular, occipital or supraclavicular lymphadenopathy. CHEST: Normal chest expansion. No Telemetry. LUNGS: Absence of any rales, rhonchi or any wheezing. CARDIOVASCULAR: Regular. S1 and S2 normal. No appreciable rubs, murmurs or gallops. ABDOMEN: Soft, mild tenderness to palpation in the left lower quadrant and right lower quadrant, and nondistended. There is no rebound, voluntary guarding, or rigidity. : Deferred. No Mcdaniel. EXTREMITIES: Non-edematous and not cyanotic. No clubbing. Good capillary refill. SKIN: No skin breakdown. Vital Sign (Last 24 Hours) 10/25/24 11:00 Temp 98.8 Pulse 61 Resp 18 B/P (MAP) 119/61 Pulse Ox 99 O2 Delivery Room Air* O2 Flow Rate 0 FiO2 21 LABS: Laboratory: Test 10/25/24 08:47 10/25/24 08:43 Range/Units White Blood Count 15.7 H 4.8-10.8 K/uL Red Blood Count 4.49 4.00-5.50 MIL/uL Hemoglobin 13.1 12.0-16.0 g/dL Hematocrit 40.7 36-48 % Mean Corpuscular Volume 90.6 79-99 fL Mean Corpuscular Hemoglobin 29.2 27.0-33.0 pg Mean Corpuscular Hemoglobin Concent 32.2 32.0-36.0 g/dL Red Cell Distribution Width 14.2 11.0-15.5 % Platelet Count 327 130-400 K/uL Mean Platelet Volume 9.9 7.5-10.5 fL Immature Granulocyte % (Auto) 0.8 0-1 % Neutrophils (%) (Auto) 80.4 H 40.0-77.0 % Lymphocytes (%) (Auto) 9.4 L 21.0-51.0 % Monocytes (%) (Auto) 8.4 3.0-13.0 % Eosinophils (%) (Auto) 0.7 0.0-8.0 % Basophils (%) (Auto) 0.3 0.0-5.0 % Neutrophils # (Auto) 12.6 H 1.8-7.7 K/uL Lymphocytes # (Auto) 1.5 1.0-4.8 K/uL Monocytes # (Auto) 1.3 H 0.1-1.0 K/uL Eosinophils # (Auto) 0.11 0.00-0.70 K/uL Basophils # (Auto) 0.04 0.00-0.20 K/uL Absolute Immature Granulocyte (auto 0.12 0-1 K/uL Nucleated Red Blood Cells 0.0 0.0-0.19 % White Cell Morphology Comment See comments Sodium Level 140 136-145 mmol/L Potassium Level 3.4 L 3.5-5.1 mmol/L Chloride Level 102 101-111 mmol/L Carbon Dioxide Level 32 21-32 mmol/L Blood Urea Nitrogen 12 7-18 mg/dL Creatinine 0.8 0.5-1.0 mg/dL Glomerular Filtration Rate Calc 86 >90 mL/min Random Glucose 127 H 70-105 mg/dL Hemoglobin A1c 6.2 H 4.0-6.0 % Estimated Average Glucose (eAG) 131 H 70-126 mg/dL Total Calcium 8.8 8.5-10.1 mg/dL Total Bilirubin 1.6 H 0.2-1.0 mg/dL Direct Bilirubin 0.5 H 0.0-0.3 mg/dL Aspartate Amino Transf (AST/SGOT) 101 H 10-37 U/L Alanine Aminotransferase (ALT/SGPT) 82 H 12-78 U/L Alkaline Phosphatase 222 H 50-136 U/L Troponin I High Sensitivity < 4 L 4-50 ng/L C-Reactive Protein, Quantitative 222.90 H 0.5-3.0 mg/L Total Protein 7.4 6.0-8.3 g/dL Albumin 3.0 L 3.5-5.0 g/dL Lipase 21 16-77 U/L Procalcitonin 0.05 0.05-0.5 ng/mL Thyroid Stimulating Hormone (TSH) 0.47 0.36-3.74 uIU/mL Urine Color DARK-YELLOW YELLOW Urine Appearance CLOUDY H CLEAR Urine pH 6.0 5.0-8.0 Urine Specific [place] 1.028 1.001-1.031 Urine Protein 70 H NEGATIVE mg/dL Urine Glucose (UA) NEGATIVE NEGATIVE mg/dL Urine Ketones 5 H NEGATIVE mg/dL Urine Occult Blood SMALL H NEGATIVE Urine Nitrate NEGATIVE NEGATIVE Urine Bilirubin 0.5 H NEGATIVE mg/dL Urine Urobilinogen 4.0 H 0.2-1.0 mg/dL Urine Leukocyte Esterase 500 H NEGATIVE Diane/uL Urine RBC 11-25 H 0-1 /HPF Urine WBC 51-100 H 0-1 /HPF Urine Squamous Epithelial Cells MANY 0-2 /HPF Urine Bacteria RARE None Seen /HPF Current Medications Medications (Trade) Dose Ordered Sig/Abbe Route PRN Reason Start Time Stop Time Status Last Admin Dose Admin Famotidine (Pepcid 20mg Tab) 20 mg BID PO 10/25/24 21:00 11/24/24 20:59 Ketorolac Tromethamine (toRADol) 15 mg Q6H PRN IV MODERATE PAIN (4-6) 10/25/24 12:00 10/30/24 11:59 Lactated Ringer's 1,000 ml @ 100 mls/hr Q10H IV 10/25/24 12:00 11/24/24 11:59 Magnesium Sulfate 50 ml @ 0 mls/hr PROTOCOL PRN IV hypomagnesemia 10/25/24 12:00 11/24/24 11:59 Morphine Sulfate (morPHINE 2MG SYG) 2 mg Q6H PRN IVP SEVERE PAIN (7-10) 10/25/24 12:00 11/01/24 11:59 Piperacillin Sod/ Tazobactam Sod (Zosyn 3.375gm+NS 50ml) 3.375 gm Q8H IV 10/25/24 11:00 11/04/24 10:59 10/25/24 11:11 3.375 GM Potassium Chloride 100 ml @ 50 mls/hr AD PRN IV POTASSIUM PROTOCOL 10/25/24 12:00 11/24/24 11:59 DIAGNOSTICS / RADIOLOGY: [ ] ASSESSMENT: Acute complicated diverticulitis with associated abscess Leukocytosis secondary to diverticulitis Recurrent diverticulitis Diarrhea Hypertension History of hyperthyroidism History of anxiety Obesity BMI 35.5 PLAN: - patient to be admitted to medical-surgical unit with telemetry -in reference to acute complicated diverticulitis. The patient will be started on IV Zosyn and lactated Ringer's for fluids. The patient will be NPO for now. We will request consultation with General surgery secondary to patient's 2nd hospitalization. We will also request consultation with ID for antibiotic stewardship. Appreciate recommendations. -check TSH, A1c, procalcitonin CRP -obtain home medications which will be reconciled once available -patient will be on morphine and Toradol for pain control -further orders per hospitalization course. Advanced Care Planning Which of the following were discussed: Hospice care: Yes __ No _x_ Therapeutic options: Yes __ No __ Advance directives: Yes __ No __ Other discussions: Pt is full code Discussed with who?: patient (Patient, family or surrogates) Voluntary nature of this service was explained to the patient? Yes _x_ No __ Amount of time spent: 25 minutes ED Chahal MD, MD Oct 25, 2024 13:02
[2024-10-25 13:24] LABS: INR 1.01 (0.85-1.15); PROTHROMBIN TIME 10.9 SEC (9.6-11.6)
[2024-10-25 13:26] LABS: PARTIAL THROMBOPLASTIN TIME 34.8 SEC (26.3-35.5)
--- NOTE | 2024-10-25 14:11 | HMCIMG ---
US ABDOMINAL RUQ\E\LTD HISTORY: assess liver and gall bladder, cbd COMPARISON: None FINDINGS: There is moderate hepatic steatosis. There are no focal liver masses. The liver is enlarged at 18 cm.The gallbladder is surgically absent. Common duct is normal at 4 mm.. Right kidney is normal with no evidence of mass, hydronephrosis or stone.The pancreas appears normal as well. IMPRESSION: 1. Moderate hepatic steatosis, the liver is enlarged at 18 cm. 2. Absent gallbladder. 3. No acute finding.
[2024-10-25] MEDS: LACTATED RINGERS 1000ML 1,000 ML IV SCH (14:37)
--- NOTE | 2024-10-25 15:30 | NUR ---
PRODUCTION GRIP ASSIGNED [id number] FOR ER PT. I CALLED ER NURSE DANA HENDRICKSON. HE STATED HE DID KNOW BED ASSIGNED FOR THIS PT. HE THEN ASKED TO CALL BACK LATER TO GIVE REPORT.
--- NOTE | 2024-10-25 15:58 | NUR ---
DCP-Home Pt lives with daughter Beth Koroma [phone]. PCP is Marly Rodriguez and preferred pharmacy is [facility]. 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 She anticipates discharge plan is for home. Addendum: 10/25/24 at 1605 by HOPE JOHN RN CM Amended: Links added.
--- NOTE | 2024-10-25 16:17 | NUR ---
NURSE SUAREZ NOT READY FOR REPORT
[2024-10-25 17:30] VITALS: BP 146/86; PULSE 86; RESP 16; TEMP 98.6
--- NOTE | 2024-10-25 17:30 | NUR ---
PT ARRIVES FROM ER. STABLE. MADE COMFORTABLE. OFFERS NO COMPLAINTS
[2024-10-25 18:38] VITALS: O2SAT 98
--- NOTE | 2024-10-25 19:00 | NUR ---
HAND OFF REPORT GIVEN TO JEM HENDRICKSON
[2024-10-25] MEDS: FAMOTIDINE 20MG TAB PO SCH (19:23)
[2024-10-25 19:25] VITALS: BP 135/80; PULSE 70; RESP 18; TEMP 98.5
[2024-10-25] MEDS: ketOROlac 15MG/ML VIAL (15MG/ML) IV PRN (19:26)
[2024-10-25 20:00] VITALS: O2SAT 97
[2024-10-26] VITALS: BP 127/75; PULSE 79; RESP 18; TEMP 98.3
[2024-10-26 04:00] VITALS: BP 129/70; PULSE 91; RESP 18; TEMP 98.4
[2024-10-26 06:26] LABS: BASOPHILS # (AUTO) 0.03 K/uL (0.00-0.20); BASOPHILS % (AUTO) 0.2 % (0.0-5.0); EOSINOPHILS # (AUTO) 0.24 K/uL (0.00-0.70); EOSINOPHILS % (AUTO) 1.8 % (0.0-8.0); HEMATOCRIT 38.4 % (36-48); IMMATURE GRANULOCYTE ABSOLUTE 0.11 K/uL (0-1); LYMPHOCYTES # (AUTO) 1.6 K/uL (1.0-4.8); LYMPHOCYTES % (AUTO) 11.5 % (21.0-51.0); MEAN CORPUSCULAR HEMOGLOBIN 29.3 pg (27.0-33.0); MEAN CORPUSCULAR HGB CONC 32.6 g/dL (32.0-36.0); MEAN CORPUSCULAR VOLUME 89.9 fL (79-99); MONOCYTES # (AUTO) 1.2 K/uL (0.1-1.0); MONOCYTES % (AUTO) 9.2 % (3.0-13.0); NEUTROPHILS # (AUTO) 10.4 K/uL (1.8-7.7); NEUTROPHILS % (AUTO) 76.5 % (40.0-77.0); PLATELET COUNT (AUTO) 297 K/uL (130-400); RED BLOOD CELL COUNT(AUTO) 4.27 MIL/uL (4.00-5.50); WHITE BLOOD COUNT (AUTO) 13.5 K/uL (4.8-10.8)
[2024-10-26 06:50] LABS: CREATININE 0.7 mg/dL (0.5-1.0); POTASSIUM 3.6 mmol/L (3.5-5.1)
[2024-10-26 07:55] VITALS: BP 129/75; PULSE 93; RESP 16; TEMP 98.6
[2024-10-26 08:30] VITALS: O2SAT 97
--- NOTE | 2024-10-26 10:50 | CONS ---
CONSULT NOTE: Consulting physician:Dr Ruiz Consulting service: general surgery Reason for consultation: Diverticulitis with concerns of diverticular abscess History of present illness: This is a 54-year-old female with a known history of diverticulosis with recurrent episodes of diverticulitis. Patient presented to the hospital with concerns of abdominal pain. Upon initial workup concerns for diverticulitis noted on imaging with concerns of diverticular abscess measuring 1.6 x 2.6 cm. Patient reports previous episodes several months prior and due to location of abscess IR unable to perform any percutaneous drainage. Patient on IV fluids and IV antibiotics. Patient's pain controlled. Patient currently NPO Medical history: PAST MEDICAL HISTORY: Hypertension, hyperthyroidism, history of anxiety, depression PAST SURGICAL HISTORY: Hysterectomy, cholecystectomy, BTL, history of cyst removal in the 5th digit of the right hand PAST SOCIAL HISTORY: Denied smoking, drug use FAMILY HISTORY: Denied any pertinent family history Coded Allergies: No Known Allergies (Unverified Allergy, Unknown, 08/18/24) Review of systems: General: No Fever, No Chills, No Night Sweats, No Fatigue, No Malaise, No Appetite, No Other HEENT: No Head Aches, No Visual Changes, No Eye Pain, No Ear Pain, No Dysphasia, No Sinus Congestion, No Post Nasal Drip, No Sore Throat, No Other Pulmonary: No Dyspnea, No Cough, No Pleuritic Chest Pain, No Other Cardiovascular: No: Chest Pain, Palpitations, Orthopnea, Paroxysmal No Dyspnea, Edema, Lt Headedness, Other Gastrointestinal: No: Nausea, Vomiting, Diarrhea, Constipation, Melena, Hematochezia, Other Genitourinary: No Dysuria, No Frequency, No Incontinence, No Hematuria, No Retention, No Other Musculoskeletal: No: other, neck pain, shoulder pain, arm pain, back pain, hand pain, leg pain, foot pain Skin: No Urticaria, No Rash, No Other Neurological: No: Weakness, Numbness, Incoordination, Change in speech, Confusion, Seizures, Other Physical exam: GENERAL APPEARANCE: The patient is awake, alert, and oriented, in no acute cardiopulmonary distress. NEUROLOGICAL: Cranial nerves II-XII grossly intact. Motor is 5/5 in bilateral upper and lower extremities proximal to distal. No sensory deficits. HEENT: Face is symmetric. Pupils are equal and reactive. Extraocular movements are intact. NECK: Supple. No JVD. No thyromegaly. No submental, submandibular, pre- /postauricular, occipital or supraclavicular lymphadenopathy. CHEST: Normal chest expansion. No Telemetry. LUNGS: Absence of any rales, rhonchi or any wheezing. CARDIOVASCULAR: Regular. S1 and S2 normal. No appreciable rubs, murmurs or gallops. ABDOMEN: Soft, mild tenderness to palpation in the left lower quadrant and right lower quadrant, and nondistended. There is no rebound, voluntary guarding, or rigidity. : Deferred. No Mcdaniel. EXTREMITIES: Non-edematous and not cyanotic. No clubbing. Good capillary refill. SKIN: No skin breakdown. Assessment: This is a 54-year-old female with concerns of diverticulitis with diverticular abscess Plan: At this point in time we will continue with conservative management No immediate surgical intervention planned Patient to remain NPO Patient to continue with IV fluids and IV antibiotics Consultation to IR for possible percutaneous drain placement Patient made aware of potential need for surgical intervention in the future and colonoscopy at least in six weeks Dr. Telles to be updated in patient's status and surgical team to follow patient closely ARI STARKS Jr. Oct 26, 2024 10:50
--- NOTE | 2024-10-26 11:23 | NUR ---
CT GD DRAIN PLACEMENT CANCELLED IMAGES REVIEWED BY DR PEREZ. PER DR PEREZ FLUID COLLECTION SMALL IN SIZE AND NEXT TO WALL OF COLON. NO SAFE ACCESS. RECOMMENDATION ABX FOR 3-[address] SCAN TO EVALUATE SIZE. MANOJ ZAYAS NOTIFIED. ORDER CANCELLED.
[2024-10-26] MEDS: ondanSETRON 4MG INJ IVP PRN (11:54)
[2024-10-26 11:57] VITALS: BP 138/81; PULSE 107; RESP 17; TEMP 98.8
[2024-10-26] MEDS: morPHINE 2 MG SYG IVP PRN (12:31)
[2024-10-26 16:00] VITALS: BP 135/76; PULSE 111; RESP 17; TEMP 98.8
--- NOTE | 2024-10-26 16:23 | PN ---
[facility] PROGRESS NOTE Date of Service: Oct 26, 2024 Time of Service: 16:[address] Person SUBJECTIVE: [ Patient was seen by nurse practitioner physician during rounding in room 414 comfortably lying in bed. Patient was notified by the surgeon that at this moment they would not do any surgical intervention just medical management. IR was consulted for placement of percutaneous drain but unfortunately fluid collection was too small in size and next to the wall of colon so there was no safe access. They recommend antibiotics for 3 to [address] scan to evaluate the size. Per ID patient is safe to be discharged home on Augmentin 875 mg p.o. b.i.d. and fluconazole 200 mg p.o. times 14 days for both antibiotics. Nurse practitioner reach out to the surgeon and per their recommendation they will like to place patient on a diet and then re-evaluate patient in a.m.. We will continue to monitor patient. A.m. labs. Anticipated discharge within 24 hours. ] REVIEW OF SYSTEMS CONSTITUTIONAL: Denies fevers, chills, or night sweats. No unintentional weight loss reported. NEUROLOGICAL: Denies headache, amaurosis fugax, motor weakness, sensory deficit, vertigo/spinning sensation, gait abnormalities, or tremors. ENT: No hearing loss, otalgia, otorrhea, rhinitis, rhinorrhea, hoarseness, or sore throat. CARDIOVASCULAR: Denies any exertional angina, dyspnea on exertion, orthopnea, paroxysmal nocturnal dyspnea, palpitations, life-threatening arrhythmias, claudication. PULMONARY: Denies any shortness of breath, cough, phlegm/sputum, hemoptysis, pleuritic chest pain. GASTROINTESTINAL: Denies any abdominal pain, nausea, vomiting. Denied any hematemesis, hematochezia, melena. GENITOURINARY: Denies frequency, urgency, nocturia, hematuria or incontinence (Storage/Irritative symptoms.) Low urinary stream, straining to void, urinary intermittency or hesitancy, splitting of the voiding stream, terminal dribbling. ENDOCRINOLOGIC: Denies polyuria, polydipsia, polyphagia or heat/cold intolerances. HEMATOLOGIC: Denies thrombophilia/previous clots, or coagulopathy/bleeding disorders. ONCOLOGIC: Denies personal history of malignancy. DERMATOLOGIC: Denies rashes or pruritus. PSYCHIATRIC: Denies any suicidal or homicidal ideation. Denies hallucinations. PHYSICAL EXAM GENERAL APPEARANCE: The patient is awake, alert, and oriented, in no acute cardiopulmonary distress. NEUROLOGICAL: Cranial nerves II-XII grossly intact. Motor is 5/5 in bilateral upper and lower extremities proximal to distal. No sensory deficits. HEENT: Face is symmetric. Pupils are equal and reactive. Extraocular movements are intact. NECK: Supple. No JVD. No thyromegaly. No submental, submandibular, pre-/p ostauricular, occipital or supraclavicular lymphadenopathy. CHEST: Normal chest expansion. No Telemetry. LUNGS: Absence of any rales, rhonchi or any wheezing. CARDIOVASCULAR: Regular. S1 and S2 normal. No appreciable rubs, murmurs or gallops. ABDOMEN: Soft, mild tenderness to palpation in the left lower quadrant and right lower quadrant, and nondistended. There is no rebound, voluntary guarding, or rigidity. : Deferred. No Mcdaniel. EXTREMITIES: Non-edematous and not cyanotic. No clubbing. Good capillary refill. SKIN: No skin breakdown. Vital Signs (last 8hr) Date Time Temp Pulse Resp B/P (MAP) Pulse Ox O2 Delivery O2 Flow Rate FiO2 10/26/24 11:57 98.8 107 17 138/81 96 Room Air 0.0 10/26/24 08:30 97 Room Air* 0 21 LABS: Laboratory: Test 10/26/24 05:50 10/25/24 08:47 10/25/24 08:43 Range/Units White Blood Count 13.5 H 4.8-10.8 K/uL Red Blood Count 4.27 4.00-5.50 MIL/uL Hemoglobin 12.5 12.0-16.0 g/dL Hematocrit 38.4 36-48 % Mean Corpuscular Volume 89.9 79-99 fL Mean Corpuscular Hemoglobin 29.3 27.0-33.0 pg Mean Corpuscular Hemoglobin Concent 32.6 32.0-36.0 g/dL Red Cell Distribution Width 14.0 11.0-15.5 % Platelet Count 297 130-400 K/uL Mean Platelet Volume 9.8 7.5-10.5 fL Immature Granulocyte % (Auto) 0.8 0-1 % Neutrophils (%) (Auto) 76.5 40.0-77.0 % Lymphocytes (%) (Auto) 11.5 L 21.0-51.0 % Monocytes (%) (Auto) 9.2 3.0-13.0 % Eosinophils (%) (Auto) 1.8 0.0-8.0 % Basophils (%) (Auto) 0.2 0.0-5.0 % Neutrophils # (Auto) 10.4 H 1.8-7.7 K/uL Lymphocytes # (Auto) 1.6 1.0-4.8 K/uL Monocytes # (Auto) 1.2 H 0.1-1.0 K/uL Eosinophils # (Auto) 0.24 0.00-0.70 K/uL Basophils # (Auto) 0.03 0.00-0.20 K/uL Absolute Immature Granulocyte (auto 0.11 0-1 K/uL Nucleated Red Blood Cells 0.0 0.0-0.19 % Sodium Level 140 136-145 mmol/L Potassium Level 3.6 3.5-5.1 mmol/L Chloride Level 103 101-111 mmol/L Carbon Dioxide Level 29 21-32 mmol/L Blood Urea Nitrogen 10 7-18 mg/dL Creatinine 0.7 0.5-1.0 mg/dL Glomerular Filtration Rate Calc 101 >90 mL/min Random Glucose 93 70-105 mg/dL Total Calcium 8.8 8.5-10.1 mg/dL C-Reactive Protein, Quantitative 208.60 H 0.5-3.0 mg/L Procalcitonin < 0.05 L 0.05-0.5 ng/mL White Cell Morphology Comment See comments Hemoglobin A1c 6.2 H 4.0-6.0 % Estimated Average Glucose (eAG) 131 H 70-126 mg/dL Total Bilirubin 1.6 H 0.2-1.0 mg/dL Direct Bilirubin 0.5 H 0.0-0.3 mg/dL Aspartate Amino Transf (AST/SGOT) 101 H 10-37 U/L Alanine Aminotransferase (ALT/SGPT) 82 H 12-78 U/L Alkaline Phosphatase 222 H 50-136 U/L Troponin I High Sensitivity < 4 L 4-50 ng/L Total Protein 7.4 6.0-8.3 g/dL Albumin 3.0 L 3.5-5.0 g/dL Lipase 21 16-77 U/L Thyroid Stimulating Hormone (TSH) 0.47 0.36-3.74 uIU/mL Prothrombin Time 10.9 9.6-11.6 SEC Prothromb Time International Ratio 1.01 0.85-1.15 Activated Partial Thromboplast Time 34.8 26.3-35.5 SEC Urine Color DARK-YELLOW YELLOW Urine Appearance CLOUDY H CLEAR Urine pH 6.0 5.0-8.0 Urine Specific [place] 1.028 1.001-1.031 Urine Protein 70 H NEGATIVE mg/dL Urine Glucose (UA) NEGATIVE NEGATIVE mg/dL Urine Ketones 5 H NEGATIVE mg/dL Urine Occult Blood SMALL H NEGATIVE Urine Nitrate NEGATIVE NEGATIVE Urine Bilirubin 0.5 H NEGATIVE mg/dL Urine Urobilinogen 4.0 H 0.2-1.0 mg/dL Urine Leukocyte Esterase 500 H NEGATIVE Diane/uL Urine RBC 11-25 H 0-1 /HPF Urine WBC 51-100 H 0-1 /HPF Urine Squamous Epithelial Cells MANY 0-2 /HPF Urine Bacteria RARE None Seen /HPF Current Medications Medications (Trade) Dose Ordered Sig/Abbe Route PRN Reason Start Time Stop Time Status Last Admin Dose Admin Enoxaparin Sodium (Lovenox) 30 mg DAILY SQ 10/27/24 09:00 11/26/24 08:59 Famotidine (Pepcid 20mg Tab) 20 mg BID PO 10/25/24 21:00 11/24/24 20:59 10/25/24 19:23 20 MG Fluconazole/ Sodium Chloride 100 ml @ 100 mls/hr DAILY IV 10/27/24 09:00 11/26/24 08:59 Ketorolac Tromethamine (toRADol) 15 mg Q6H PRN IV MODERATE PAIN (4-6) 10/25/24 12:00 10/30/24 11:59 10/26/24 08:53 15 MG Lactated Ringer's 1,000 ml @ 100 mls/hr Q10H IV 10/25/24 12:00 11/24/24 11:59 10/26/24 08:54 100 MLS/HR Magnesium Sulfate 50 ml @ 0 mls/hr PROTOCOL PRN IV hypomagnesemia 10/25/24 12:00 11/24/24 11:59 Morphine Sulfate (morPHINE 2MG SYG) 2 mg Q6H PRN IVP SEVERE PAIN (7-10) 10/25/24 12:00 11/01/24 11:59 10/26/24 12:31 2 MG Ondansetron HCl (zoFRAN 4MG INJ) 4 mg Q6H PRN IVP NAUSEA/VOMITING 10/26/24 12:00 11/25/24 11:59 10/26/24 11:54 4 MG Piperacillin Sod/ Tazobactam Sod (Zosyn 3.375gm+NS 50ml) 3.375 gm Q8H IV 10/25/24 11:00 11/04/24 10:59 10/26/24 11:44 3.375 GM Potassium Chloride 100 ml @ 50 mls/hr AD PRN IV POTASSIUM PROTOCOL 10/25/24 12:00 11/24/24 11:59 DIAGNOSTICS / RADIOLOGY: [ ] ASSESSMENT: Acute complicated diverticulitis with associated abscess Leukocytosis secondary to diverticulitis Recurrent diverticulitis Diarrhea Hypertension History of hyperthyroidism History of anxiety Obesity BMI 35.5 PLAN: - patient to be admitted to medical-surgical unit with telemetry -in reference to acute complicated diverticulitis. The patient will be started on IV Zosyn and lactated Ringer's for fluids. The patient will be NPO for now. We will request consultation with General surgery secondary to patient's 2nd hospitalization. We will also request consultation with ID for antibiotic stewardship. Appreciate recommendations. -check TSH, A1c, procalcitonin CRP -obtain home medications which will be reconciled once available -patient will be on morphine and Toradol for pain control -further orders per hospitalization course. ATTESTATION BY PHYSICIAN I have seen and examined the patient. I reviewed the documentation, medical decision making, and treatment plan as noted by the mid-level provider above. I agree with the findings and plan of care. MD TREMAYNE Person KATARZYNA B [employer]EV[employer] ASSISTANT MANAGER Oct 26, 2024 16:23
--- NOTE | 2024-10-26 16:35 | NUR ---
AMA PATIENT LEFT AMA. PATIENT WAS SEEN BY ALL PHYSICIANS ON HER CASE. PATIENT EDUCATED ON THE RISKS OF LEAVING AGAINST MEDICAL ADVICE. PATIENT VERBALIZES UNDERSTANDING OF RISKS AND STILL WOULD LIKE TO LEAVE AMA. PRIMARY TEAM MADE AWARE. PATIENT WHEELED DOWN TO PRIVATE AUTOMOBILE BY AND IS ACCOMPANIED BY FAMILY. Addendum: 10/26/24 at 1703 by NOEL OROURKE LVN LVN PIV REMOVED, PRESSURE, GAUZE, AND TAPE APPLIED TO SITE.
--- NOTE | 2024-10-26 16:56 | DS ---
Discharge Summary Hospital Course Summary: DATE OF ADMISSION:[10/24/2024] DATE OF DISCHARGE:[10/26/2024] DISPOSITION:[Home] CONDITION:[Patient left AMA] CONSULTANTS:[Surgeon, id] FOLLOW UP APPOINTMENTS:[PCP 2 to 3 days. Surgeon within a week] PROCEDURES:[None] IMAGING: report attached to summary MICROBIOLOGY: report attached to summary ACTIVITY:[Independent] HOME MEDICATIONS: see [facility] NEW MEDICATIONS:[Patient received antibiotics as prescribed by ID on script] EMERGENCY INSTRUCTIONS: The patient was instructed to present to the nearest Emergency departmentr or call 911 once their symptoms will return or worsen Can Machine Operator(s): Patient left AMA stated that she has to go back to work and she can not stay another night at the hospital. Per RN she gave patient described that ID left for Augmentin 875 mg p.o. b.i.d. and fluconazole 200 mg p.o. for 14 days for both antibiotics. Patient stated that she will follow up with PCP in 2 to 3 days and with surgeon within a week. Procedure(s): REVIEW OF SYSTEMS CONSTITUTIONAL: Denies fevers, chills, or night sweats. No unintentional weight loss reported. NEUROLOGICAL: Denies headache, amaurosis fugax, motor weakness, sensory deficit, vertigo/spinning sensation, gait abnormalities, or tremors. ENT: No hearing loss, otalgia, otorrhea, rhinitis, rhinorrhea, hoarseness, or sore throat. CARDIOVASCULAR: Denies any exertional angina, dyspnea on exertion, orthopnea, paroxysmal nocturnal dyspnea, palpitations, life-threatening arrhythmias, claudication. PULMONARY: Denies any shortness of breath, cough, phlegm/sputum, hemoptysis, pleuritic chest pain. GASTROINTESTINAL: Denies any abdominal pain, nausea, vomiting. Denied any hematemesis, hematochezia, melena. GENITOURINARY: Denies frequency, urgency, nocturia, hematuria or incontinence (Storage/Irritative symptoms.) Low urinary stream, straining to void, urinary intermittency or hesitancy, splitting of the voiding stream, terminal dribbling. ENDOCRINOLOGIC: Denies polyuria, polydipsia, polyphagia or heat/cold intolerances. HEMATOLOGIC: Denies thrombophilia/previous clots, or coagulopathy/bleeding disorders. ONCOLOGIC: Denies personal history of malignancy. DERMATOLOGIC: Denies rashes or pruritus. PSYCHIATRIC: Denies any suicidal or homicidal ideation. Denies hallucinations. PHYSICAL EXAM GENERAL APPEARANCE: The patient is awake, alert, and oriented, in no acute cardiopulmonary distress. NEUROLOGICAL: Cranial nerves II-XII grossly intact. Motor is 5/5 in bilateral upper and lower extremities proximal to distal. No sensory deficits. HEENT: Face is symmetric. Pupils are equal and reactive. Extraocular movements are intact. NECK: Supple. No JVD. No thyromegaly. No submental, submandibular, pre- /postauricular, occipital or supraclavicular lymphadenopathy. CHEST: Normal chest expansion. No Telemetry. LUNGS: Absence of any rales, rhonchi or any wheezing. CARDIOVASCULAR: Regular. S1 and S2 normal. No appreciable rubs, murmurs or gallops. ABDOMEN: Soft, mild tenderness to palpation in the left lower quadrant and right lower quadrant, and nondistended. There is no rebound, voluntary guarding, or rigidity. : Deferred. No Mcdaniel. EXTREMITIES: Non-edematous and not cyanotic. No clubbing. Good capillary refill. SKIN: No skin breakdown. Assessment/Plan: ASSESSMENT: Acute complicated diverticulitis with associated abscess Leukocytosis secondary to diverticulitis Recurrent diverticulitis Diarrhea Hypertension History of hyperthyroidism History of anxiety Obesity BMI 35.5 Home Medications: Active Scripts Ibuprofen (Ibuprofen 800 mg Tab) 800 Mg Tab, 800 MG PO Q8H PRN for fever or pain, #30 TAB 0 Refills Prov:JOSI HAYNES NP 10/06/24 Cyclobenzaprine HCl (Cyclobenzaprine HCl) 10 Mg Tablet, 1 TAB PO TID for muscle spasms for 10 Days, #30 TAB 0 Refills Prov:JOSI HAYNES NP 10/06/24 Amlodipine Besylate (Norvasc 5Mg Tab) 5 Mg Tablet, 5 MG PO DAILY for 30 Days, #30 TAB Prov:SUKUMAR HOLLIS RN INTEGRITY 08/24/24 Reported Medications Aspirin (ASPIRIN 81 MG ECTAB) 81 Mg Ectab, 81 MG PO DAILY, TAB.EC 08/18/24 Duloxetine HCl (Duloxetine HCl) 30 Mg Capsule.dr, 30 MG PO BID, CAP 08/18/24 Metoprolol Succinate (Metoprolol Succinate) 25 Mg Tab.er.24h, 25 MG PO DAILY, TAB 08/18/24 Methimazole (Methimazole) 5 Mg Tablet, 5 MG PO TID, TAB 08/18/24 Omeprazole (Omeprazole) 40 Mg Capsule.dr, 40 MG PO DAILY, CAP 08/18/24 Buspirone HCl (Buspirone HCl) 15 Mg Tablet, 15 MG PO BID, TAB 08/18/24 Losartan/Hydrochlorothiazide (Losartan-Hctz 50-12.5 mg Tab) 50 Mg-12.5 Mg Tablet, 1 EACH PO DAILY, TAB 08/18/24 Time spent arranging discharge: 31-60 minutes ATTESTATION BY PHYSICIAN I have seen and examined the patient. I reviewed the documentation, medical decision making, and treatment plan as noted by the mid-level provider above. I agree with the findings and plan of care. MD TREMAYNE Person KATARZYNA [facility] Oct 26, 2024 16:56
--- NOTE | 2024-10-26 23:24 | CONS ---
INFECTIOUS DISEASE CONSULTATION DATE OF SERVICE: 10/26/2024 REQUESTING PHYSICIAN: Dr. Pete Ruiz. REASON FOR CONSULTATION: Diverticulitis with perforation. HISTORY OF PRESENT ILLNESS: A 54-year-old female with history of hypertension, obesity, diverticulitis, presented to the hospital with abdominal pain. Pain localized to the left lower quadrant. Has some nausea, but no vomiting. The patient denies fever or chills. CT of the abdomen was done, came back with sigmoid colon diverticulitis with abscess. No dysuria or urinary frequency. The patient has been started on Zosyn. PAST MEDICAL HISTORY: * Hypertension. * Hypothyroidism. * Anxiety disorder. * Depression. * Morbid obesity. * Diverticulitis. PAST SURGICAL HISTORY: * Hysterectomy. * Cholecystectomy. * Bilateral tubal ligation. * Cyst removal from hand. ALLERGIES: No known drug allergy. CURRENT MEDICATIONS: Include: * Zosyn. * Thiamine. * Zofran. SOCIAL HISTORY: Lives with her . No alcohol, tobacco, or illicit drug use. FAMILY HISTORY: Noncontributory. REVIEW OF SYSTEMS: Greater than 10 systems were reviewed, negative except as documented above. PHYSICAL EXAMINATION: GENERAL: Middle-aged female, awake. VITAL SIGNS: Temperature 98.2, pulse 103, respirations 17, BP 138/81. EYES: No icterus. Pupils equal and reactive. HENT: No oral thrush seen. Moist oral mucosa. NECK: Supple, no JVD or thyromegaly. LUNGS: Good air entry. No rales, no rhonchi. CARDIOVASCULAR: S1, S2 regular. No murmurs heard. ABDOMEN: Obese, soft. Bowel sounds are present. ____ lower quadrant. CENTRAL NERVOUS SYSTEM: Awake, alert, oriented x 3. No focal deficits. SKIN: No rashes, no itchiness. LYMPHATIC: No peripheral lymphadenopathy. BACK: No deformity, no pressure ulcer. DERMATOLOGIC: No bleeding or petechial lesion seen. MUSCULOSKELETAL: No joint swelling, erythema or tenderness. LABORATORY DATA: Sodium 140, potassium of 3.6, BUN 10, creatinine 0.7. WBC 13.4, hemoglobin 12.5, platelets 297. Urine culture growing gram-negative talia. RADIOLOGY: CT of the abdomen shows sigmoid colon diverticulitis with abscess. ASSESSMENT: A 54-year-old female admitted with abdominal pain. Current problem include: * Sigmoid colon diverticulitis with perforation. * Intraabdominal abscess. * Urinary tract infection. * Obesity. * Hypertension. PLAN: * Continue Zosyn. * Start the patient on fluconazole. * Follow up cultures. * Continue pain management. * Continue antiemetics. * Monitor electrolytes. * The patient will follow up closely. Thank you for allowing me to participate in the care of this patient. TID: [id number] RECEIPT: [id number] [facility]
[2024-10-27] MEDS ORDERED: fluCONazole 200 MG/NS 100 ML 100 ML IV SCH (09:00)
[2024-10-27] MEDS ORDERED: ENOXAPARIN SODIUM 30 MG/0.3 ML SQ SCH (09:00)
== END 2024-10-26 17:00 | disposition left against medical advice (07) | DRG 391 ==
LOC: EDH 07:49 → EDHIP 11:21 → 4CH 17:30
PROVIDERS: ADMIT Internal Medicine; ATTEND Internal Medicine
DX: K57.20 Diverticulitis of large intestine with perforation and abscess without bleeding (principal); K65.1 Peritoneal abscess; N39.0 Urinary tract infection, site not specified; Z68.35 Body mass index [BMI] 35.0-35.9, adult; I10 Essential (primary) hypertension; E03.9 Hypothyroidism, unspecified; K59.00 Constipation, unspecified; E66.01 Morbid (severe) obesity due to excess calories; F32.A Depression, unspecified; F41.9 Anxiety disorder, unspecified; Z90.710 Acquired absence of both cervix and uterus; Z90.49 Acquired absence of other specified parts of digestive tract
CPT/HCPCS: 36415; 74177; 76705; 80048; 80076; 81001; 83036; 83690; 84145; 84443; 84484; 85025; 85610; 85730; 86140; 87086; 96361; 96365; 96375; 99285; G0378; J1885; J2270; J2405; J2543; J7030; J7120; Q9967

== ENCOUNTER 2024-12-09 19:55 | Emergency (ER) | payer BC ==
[~2024-12-09] VITALS: Ht 167.6 cm; Wt 99.3 kg
[2024-12-09 19:56] VITALS: BP 146/87; PULSE 109; RESP 20; TEMP 98.8
--- NOTE | 2024-12-09 20:04 | NUR ---
UA CUP PROVIDED
--- NOTE | 2024-12-09 20:13 | ERN ---
General Chief Complaint: Abdominal Pain Stated Complaint: ABDOMINAL PAIN Time Seen by MD: 19:56 Source: patient History of Present Illness Initial Comments Patient is a 54-year-old female coming in to be evaluated for lower abdominal pain. Patient states that the pain began last night. She quantifies the pain at 8/10 localized to the lower abdominal region sharp does not radiate. She also states that she has had three episodes similar to this in the past in which she was diagnosed with diverticulitis. Last event happened two months ago she was treated with oral antibiotics and discharged. Patient is a had any fever no nausea no vomiting. Allergies: Coded Allergies: No Known Allergies (Unverified Allergy, Unknown, 08/18/24) Home Meds Active Scripts Ibuprofen (Ibuprofen 800 mg Tab) 800 Mg Tab, 800 MG PO Q8H PRN for fever or pa in, #30 TAB 0 Refills Prov:JOSI HAYNES NP 10/06/24 Cyclobenzaprine HCl (Cyclobenzaprine HCl) 10 Mg Tablet, 1 TAB PO TID for muscle spasms for 10 Days, #30 TAB 0 Refills Prov:JOSI HAYNES NP 10/06/24 Amlodipine Besylate (Norvasc 5Mg Tab) 5 Mg Tablet, 5 MG PO DAILY for 30 Days, #30 TAB Prov:SUKUMAR HOLLIS NP 08/24/24 Reported Medications Aspirin (ASPIRIN 81 MG ECTAB) 81 Mg Ectab, 81 MG PO DAILY, TAB.EC 08/18/24 Duloxetine HCl (Duloxetine HCl) 30 Mg Capsule.dr, 30 MG PO BID, CAP 08/18/24 Metoprolol Succinate (Metoprolol Succinate) 25 Mg Tab.er.24h, 25 MG PO DAILY, TAB 08/18/24 Methimazole (Methimazole) 5 Mg Tablet, 5 MG PO TID, TAB 08/18/24 Omeprazole (Omeprazole) 40 Mg Capsule.dr, 40 MG PO DAILY, CAP 08/18/24 Buspirone HCl (Buspirone HCl) 15 Mg Tablet, 15 MG PO BID, TAB 08/18/24 Losartan/Hydrochlorothiazide (Losartan-Hctz 50-12.5 mg Tab) 50 Mg-12.5 Mg Tablet, 1 EACH PO DAILY, TAB 08/18/24 Past Medical History Past Medical History: Anxiety, Depression, Diverticulitis, UTI Medical History Other: E-COLI Past Surgical History: Hysterectomy, Cholecystectomy, BTL Surgical History Other: RT 5TH DIGIT SX Female( History) History: Not Applicable ROS Dictation CONSTITUTIONAL: No chills, no fever, no weakness, no diaphoresis, no malaise. HEAD/FACE: No signs of trauma. EENT: No eye pain, no blurred vision, no tearing, no double vision, no ear pain, no ear discharge, no nose pain, no nasal congestion, no throat pain, no throat swelling, no mouth pain. RESPIRATORY: No cough, no orthopnea, no SOB, no stridor, no wheezing. CARDIOVASCULAR: No chest pain, no edema, no palpitations, no syncope. GASTROINTESTINAL/ABDOMINAL: abdominal pain, no constipation, no diarrhea, no nausea, no vomiting. GENITOURINARY: No abnormal discharge, no dysuria, no frequent urination, no hematuria. No complaints of pain in the genitals. MUSCULOSKELETAL: No back pain, no gout, no joint pain, no joint swelling, no muscle pain, no muscle stiffness, no neck pain. INTEGUMENTARY: No change in color, no change in hair/nails, no dryness, no lesion, no lumps, no rash. NEUROLOGICAL/PSYCH: No anxiety, not depressed, no emotional problem, no headache, no numbness, no pre-existing deficit, no history of seizures, no tremors, no weakness. HEMATOLOGIC/LYMPHATIC: Not anemic, no history of blood clots, no apparent bleeding, no bruising, glands not swollen. All Systems Negative, Except as Noted. Physical Exam Physical Exam Dictation VITAL SIGNS: Reviewed. GENERAL APPEARANCE: Alert, oriented x3, no acute distress, obese. HEAD AND FACE: Non-traumatic. EYES: PERRL, pink conjunctivas, eyelid no trauma, anterior chamber clear. EARS: Pinnas intact and no signs of trauma or erythema. Ear canals clear and no discharge. TMs no erythema. NOSE: No discharge, no bleeding. OROPHARYNX: Mouth normal, teeth no caries, tongue pink. Pharynx clear, no erythema. Tonsils no exudates, no abscesses noted. Mucous membrane moist. NECK: Supple, non-tender, no thyromegaly, no masses, no JVD, no bruits. BREAST: Deferred. CHEST: No tenderness, no crepitus, no paradoxical movement, no retractions. LUNGS: Clear, well-ventilated, symmetric, no rales, no wheezing, no rhonchi, no stridor, good breath sounds bilaterally. HEART: Regular rate, regular rhythm, no murmur, no gallops. VASCULAR: No peripheral edema. ABDOMEN: Soft, positive bowel sounds, nondistended, no guarding, left lower quadrant abdominal pain, reproducible on palpation,, no rebound, no masses no hepatomegaly, no splenomegaly, no Keita's sign, no hernias. RECTAL: Deferred. GENITAL: Deferred. NEUROLOGICAL: Normal speech, gross motor function intact, gross sensory function intact. MUSCULOSKELETAL: Neck nontender, full range of motion, back nontender, full range of motion. EXTREMITIES: Nontender, full range of motion. SKIN: Color pink, dry, no turgor, no rash, no lacerations, no abrasions, no contusions. LYMPHATICS: Deferred. Results Laboratory and Microbiology Lab and Micro Result Laboratory Tests Test 12/09/24 20:38 12/09/24 21:07 White Blood Count 17.7 K/uL (4.8-10.8) H Red Blood Count 4.47 MIL/uL (4.00-5.50) Hemoglobin 13.0 g/dL (12.0-16.0) Hematocrit 40.0 % (36-48) Mean Corpuscular Volume 89.5 fL (79-99) Mean Corpuscular Hemoglobin 29.1 pg (27.0-33.0) Mean Corpuscular Hemoglobin Concent 32.5 g/dL (32.0-36.0) Red Cell Distribution Width 13.6 % (11.0-15.5) Platelet Count 367 K/uL (130-400) Mean Platelet Volume 9.6 fL (7.5-10.5) Immature Granulocyte % (Auto) 0.5 % (0-1) Neutrophils (%) (Auto) 81.7 % (40.0-77.0) H Lymphocytes (%) (Auto) 9.4 % (21.0-51.0) L Monocytes (%) (Auto) 6.8 % (3.0-13.0) Eosinophils (%) (Auto) 1.3 % (0.0-8.0) Basophils (%) (Auto) 0.3 % (0.0-5.0) Neutrophils # (Auto) 14.5 K/uL (1.8-7.7) H Lymphocytes # (Auto) 1.7 K/uL (1.0-4.8) Monocytes # (Auto) 1.2 K/uL (0.1-1.0) H Eosinophils # (Auto) 0.23 K/uL (0.00-0.70) Basophils # (Auto) 0.06 K/uL (0.00-0.20) Absolute Immature Granulocyte (auto 0.09 K/uL (0-1) Nucleated Red Blood Cells 0.0 % (0.0-0.19) White Cell Morphology Comment See comments Sodium Level 142 mmol/L (136-145) Potassium Level 3.8 mmol/L (3.5-5.1) Chloride Level 104 mmol/L (101-111) Carbon Dioxide Level 33 mmol/L (21-32) H Blood Urea Nitrogen 15 mg/dL (7-18) Creatinine 0.8 mg/dL (0.5-1.0) Glomerular Filtration Rate Calc 86 mL/min (>90) Random Glucose 163 mg/dL (70-105) H Total Calcium 9.4 mg/dL (8.5-10.1) Urine Color LIGHT-YELLOW (YELLOW) Urine Appearance CLEAR (CLEAR) Urine pH 6.0 (5.0-8.0) Urine Specific [place] 1.026 (1.001-1.031) Urine Protein 20 mg/dL (NEGATIVE) H Urine Glucose (UA) NEGATIVE mg/dL (NEGATIVE) Urine Ketones NEGATIVE mg/dL (NEGATIVE) Urine Occult Blood SMALL (NEGATIVE) H Urine Nitrate NEGATIVE (NEGATIVE) Urine Bilirubin NEGATIVE mg/dL (NEGATIVE) Urine Urobilinogen 0.2 mg/dL (0.2-1.0) Urine Leukocyte Esterase 250 Diane/uL (NEGATIVE) H Urine RBC 11-25 /HPF (0-1) H Urine WBC 6-10 /HPF (0-1) H Urine Squamous Epithelial Cells MOD /HPF (0-2) Urine Bacteria None /HPF (None Seen) Labs Reviewed?: Yes MDM MDM: Differential diagnosis: Abdominal pain, leukocytosis, history of diverticulitis Rationale: Tests considered and ordered secondary to shared decision making include: Previous outside records reviewed: Old ER visits. Risk of complication and/or morbidity or mortality of patient management: None Medications-Per medication reconciliation Need for hospitalization: Patient does meet criteria for hospitalization. Need for emergency major/minor surgery: No There are no social concerns with this patient. Prescription drug management Prescriptions will include symptomatic care Patient's prior external medical records from other ER visits were reviewed by me as indicated. Prior testing and results from previous visits were reviewed. Prior tests were taken into account with medical decision making and resource utilization, independent historian/historians were used to obtain complete medical history. I independently interpreted the test that were performed, results were reviewed by me and considered findings on radiology if ordered. Medical management and examination interpretation discussions were had by me with other qualified healthcare professionals as indicated for the patient's care. Was notified by nursing staff that patient eloped from waiting room. ED Course Orders Procedure Category Date Status Time Cbc With Differential LAB 12/09/24 Complete 20:00 Basic Metabolic Panel LAB 12/09/24 Complete 20:00 Urinalysis LAB 12/09/24 Complete W/Microscopic 20:00 Culture Urine KEARA 12/09/24 In Process 21:20 Ct Abdomen/Pelvis CT 12/09/24 Logged W/Contrast 21:44 Zosyn 3.375gm+Ns 50ml PHA 12/09/24 Complete (Zosyn 3.375gm+Ns 22:00 Current Medications Medications (Trade) Dose Ordered Sig/Abbe Route PRN Reason Start Time Stop Time Status Last Admin Dose Admin Piperacillin Sod/ Tazobactam Sod (Zosyn 3.375gm+NS 50ml) 3.375 gm ONCE ONCE IV 12/09/24 22:00 12/09/24 22:01 DC Vital Signs Date Time Temp Pulse Resp B/P (MAP) Pulse Ox O2 Delivery O2 Flow Rate FiO2 12/09/24 19:56 98.8 109 20 146/87 97 Room Air DX & DISP Disposition: AMA Departure Impression: Primary Impression: Abdominal pain Additional Impression: Leukocytosis Condition: Against Medical Advice Referrals: RONNELL VILLALPANDO DO (PCP) Time of Disposition: 01:15 LINSEY BELTRAN MD Dec 09, 2024 20:13
[2024-12-09 20:45] LABS: BASOPHILS # (AUTO) 0.06 K/uL (0.00-0.20); BASOPHILS % (AUTO) 0.3 % (0.0-5.0); EOSINOPHILS # (AUTO) 0.23 K/uL (0.00-0.70); EOSINOPHILS % (AUTO) 1.3 % (0.0-8.0); IMMATURE GRANULOCYTE ABSOLUTE 0.09 K/uL (0-1); LYMPHOCYTES # (AUTO) 1.7 K/uL (1.0-4.8); LYMPHOCYTES % (AUTO) 9.4 % (21.0-51.0); MEAN CORPUSCULAR HEMOGLOBIN 29.1 pg (27.0-33.0); MEAN CORPUSCULAR HGB CONC 32.5 g/dL (32.0-36.0); MEAN CORPUSCULAR VOLUME 89.5 fL (79-99); MONOCYTES # (AUTO) 1.2 K/uL (0.1-1.0); MONOCYTES % (AUTO) 6.8 % (3.0-13.0); NEUTROPHILS # (AUTO) 14.5 K/uL (1.8-7.7); NEUTROPHILS % (AUTO) 81.7 % (40.0-77.0); PLATELET COUNT (AUTO) 367 K/uL (130-400); RED BLOOD CELL COUNT(AUTO) 4.47 MIL/uL (4.00-5.50); RED CELL DISTRIBUTION WIDTH 13.6 % (11.0-15.5); WHITE BLOOD COUNT (AUTO) 17.7 K/uL (4.8-10.8)
--- NOTE | 2024-12-09 21:08 | NUR ---
UA COLLECTED AND SENT
[2024-12-09 21:12] LABS: CREATININE 0.8 mg/dL (0.5-1.0); POTASSIUM 3.8 mmol/L (3.5-5.1)
[2024-12-09 21:16] LABS: APPEARANCE,URINE CLEAR (CLEAR); BILIRUBIN,URINE NEGATIVE (NEGATIVE); COLOR,URINE LIGHT-YELLOW (YELLOW); GLUCOSE, URINE (UA) NEGATIVE (NEGATIVE); KETONES,URINE NEGATIVE (NEGATIVE); LEUKOCYTE ESTERASE ,URINE 250 Leu/uL (NEGATIVE); NITRATE,URINE NEGATIVE (NEGATIVE); OCCULT BLOOD,URINE SMALL (NEGATIVE); PROTEIN,URINE 20 mg/dL (NEGATIVE); UROBILINOGEN,URINE 0.2 mg/dL (0.2-1.0)
[2024-12-09 21:33] LABS: MUCUS,URINE RARE LPF (None Seen); SQUAMOUS EPITHELIAL CELL,UR MOD /HPF (0-2)
[2024-12-09] MEDS ORDERED: ZOSYN 3.375GM +NS 50ML IV ONE (22:00)
--- NOTE | 2024-12-09 22:51 | NUR ---
PT REQUESTING TO LEAVE. STATES " MY PAIN ISNT THAT BAD" NOTED " DECADMIT" ON CHART. EXPLAINED TO PT TO PLEASE STAY WHILE I TALK WITH DR BELTRAN. DR BELTRAN MADE AWARE. WILL COME AND TALK WITH PT. PT NOTIFIED. VERBALIZED UNDERSTANDING WITH VERBAL TEACHBACK
--- NOTE | 2024-12-10 00:01 | NUR ---
PT SITTING IN LOBBY WITH IN FRONT OF TRIAGE WINDOW. NO ACUTE DISTRESS NOTED. TALKING AND INTERACTING WELL. GOOD CHEST RISE AND FALL NOTED.
--- NOTE | 2024-12-10 00:28 | NUR ---
PT STATES SHE NEEDS TO LEAVE DUE TO WORK IN THE MORNING . DESPITE EFFORTS PT DECIDED TO LEAVE AGAINST MEDICAL ADVICE, SHE HAS A NORMAL MENTAL STATUS AND FULL DECISIONAL CAPACITY. PT UNDERSTAND HER CONDITION EXLAINED TO HER BY DR BELTRAN,ABNORMAL LABS AND RISK OF LEAVING AMA. INCUDING BUT NOT LIMITED TO PERMANENT DISABLITIY. PT LEFT WITHOUT SIGNING AMA. AT PT SIDE AND UNDERSTOOD ALL RISKS. STATES THEY WILL RETURN TOMORROW
== END 2024-12-10 01:03 | disposition left against medical advice (07) ==
LOC: EDH 19:55
DX: R10.32 Left lower quadrant pain (principal); D72.829 Elevated white blood cell count, unspecified; F41.9 Anxiety disorder, unspecified; Z79.82 Long term (current) use of aspirin; Z79.899 Other long term (current) drug therapy; Z90.49 Acquired absence of other specified parts of digestive tract; Z90.710 Acquired absence of both cervix and uterus
CPT/HCPCS: 36415; 80048; 81001; 85025; 87086; 99283

== ENCOUNTER 2025-11-04 17:10 | Emergency (ER) | payer BC ==
[~2025-11-04] VITALS: Ht 167.6 cm; Wt 90.7 kg
[~2025-11-04 17:10] MED LIST changes: +AMLO-257 PO; +ASPI-1443 PO; -IBUP-2077 PO; +LEVO-70 PO; -METH-386 PO; +METR-172 PO; +TRAM-543 PO; +TRAM100T34 PO
[2025-11-04 17:27] VITALS: BP 142/77; PULSE 82; RESP 16; TEMP 98.3; O2SAT 98
[2025-11-04] MEDS: LIDOCAINE HCL 1% 20 ML VIAL INJ ONE (17:43)
--- NOTE | 2025-11-04 17:50 | NUR ---
lt 2nd finger cleaned and sutured, pt tolerated well
[2025-11-04] MEDS ORDERED: MUPI22OI2 TP (18:12)
--- NOTE | 2025-11-04 18:14 | ERN ---
General Chief Complaint: Laceration/Avulsion Stated Complaint: LAC TO 2ND FINGER Time Seen by MD: 17:16 Time Seen by Midlevel: 17:16 Source: patient History of Present Illness Initial Comments A 55-year-old female presenting to the emergency department for evaluation of a laceration to her left 2nd digit. Patient states she was cutting chicken when she accidentally sliced her finger. She is not up-to-date with the tetanus vaccination. Allergies: Coded Allergies: No Known Allergies (Unverified Allergy, Unknown, 08/18/24) Home Meds Active Scripts Mupirocin (Mupirocin Ointment) 2 % Oint, 1 APPL TP TID for 5 Days, #15 GM 0 Refills apply to affected area(s) Prov:CHRIS ALVARADO 11/04/25 Tramadol HCl/Acetaminophen (Tramadol-Acetaminophn 37.5-325) 37.5 Mg-325 Mg Tablet, 1 TAB PO Q4HPRN PRN for pain for 2 Days, #12 TAB 0 Refills Prov:JILL ODEN MD 01/11/25 Metronidazole (Metronidazole) 500 Mg Tablet, 1 TAB PO TID for 7 Days, #30 TAB 0 Refills Prov:JILL ODEN MD 01/11/25 Levofloxacin (Levofloxacin) 500 Mg Tablet, 1 TAB PO DAILY for 7 Days, #7 TAB 0 Refills Prov:JILL ODEN MD 01/11/25 Cyclobenzaprine HCl (Cyclobenzaprine HCl) 10 Mg Tablet, 1 TAB PO TID for muscle spasms for 10 Days, #30 TAB 0 Refills Prov:JOSI HAYNES [facility] 10/06/24 Amlodipine Besylate (Norvasc 5Mg Tab) 5 Mg Tablet, 5 MG PO DAILY for 30 Days, #30 TAB Prov:SUKUMAR HOLLIS [facility] 08/24/24 Reported Medications Aspirin (Aspirin EC) 81 Mg Tablet.dr, 1 TAB PO DAILY for 30 Days, #30 TAB 0 Refills 02/06/25 Omeprazole (Omeprazole) 40 Mg Capsule.dr, 1 CAP PO DAILY for 30 Days, #30 CAP 0 Refills 02/06/25 Tramadol HCl (Tramadol HCl ER) 100 Mg Tab.er.24h, 50 MG PO TID PRN for PAIN LEVEL 4 TO 6, TAB 02/06/25 Losartan/Hydrochlorothiazide (Losartan-Hctz 50-12.5 mg Tab) 50 Mg-12.5 Mg Tablet, 1 TAB PO DAILY for 30 Days, #30 TAB 0 Refills 02/06/25 Buspirone HCl (Buspirone HCl) 15 Mg Tablet, 1 TAB PO BID for 30 Days, #60 TAB 0 Refills 02/06/25 Duloxetine HCl (Duloxetine HCl) 30 Mg Capsule.dr, 1 CAP PO BID for 30 Days, #30 CAP 0 Refills 02/06/25 Metoprolol Succinate (Metoprolol Succinate) 25 Mg Tab.er.24h, 1 TAB PO DAILY for 30 Days, #30 TAB 0 Refills 02/06/25 Amlodipine Besylate (Amlodipine Besylate) 5 Mg Tablet, 1 TAB PO DAILY for 30 Days, #30 TAB 0 Refills 02/06/25 Aspirin (ASPIRIN 81 MG ECTAB) 81 Mg Ectab, 81 MG PO DAILY, TAB.EC 08/18/24 Duloxetine HCl (Duloxetine HCl) 30 Mg Capsule.dr, 30 MG PO BID, CAP 08/18/24 Metoprolol Succinate (Metoprolol Succinate) 25 Mg Tab.er.24h, 25 MG PO DAILY, TAB 08/18/24 Omeprazole (Omeprazole) 40 Mg Capsule.dr, 40 MG PO DAILY, CAP 08/18/24 Buspirone HCl (Buspirone HCl) 15 Mg Tablet, 15 MG PO BID, TAB 08/18/24 Losartan/Hydrochlorothiazide (Losartan-Hctz 50-12.5 mg Tab) 50 Mg-12.5 Mg Tablet, 1 EACH PO DAILY, TAB 08/18/24 Past Medical History Past Medical History: Anxiety, Depression, Diverticulitis, Diverticulosis, Hypertension Medical History Other: E-COLI Past Surgical History: Hysterectomy, Cholecystectomy, Other, BTL Surgical History Other: COLON RESECTION, 8" Female( History) History: Not Applicable ROS Dictation CONSTITUTIONAL: Negative except for HPI HEAD/FACE: Negative except for HPI EENT: Negative except for HPI RESPIRATORY: Negative except for HPI GASTROINTESTINAL/ABDOMINAL: Negative except for HPI GENITOURINARY: Negative except for HPI MUSCULOSKELETAL: Negative except for HPI INTEGUMENTARY: Negative except for HPI NEUROLOGICAL/PSYCH: Negative except for HPI HEMATOLOGIC/LYMPHATIC: Negative except for HPI All Systems Negative, Except as noted above. 13 point review of systems assessed and all negative except for above. Physical Exam Physical Exam Dictation PHYSICAL EXAM: GENERAL: alert,, awake oriented x 3 HEENT: EOMI, Sclera non icteric, moist mucosa NECK: Supple, no JVD, trachea midline LUNGS: Clear breath sounds bilaterally. No wheezes HEART: Regular rate and rhythm. Normal S1 and S2, without murmurs ABD: Abdomen soft, nontender. Bowel sounds present EXT: No clubbing or cyanosis, NEURO: Alert and oriented to person, follows commands SKIN: There is a 2 cm linear laceration to the distal dorsal aspect 2nd digit with minimal active bleeding MDM MDM: Differential diagnosis: Aeration, abrasion, contusion There are no social concerns with this patient. Prescription drug management Prescriptions will include: Topical mupirocin Medical management and examination interpretation discussions were had by me with other qualified healthcare professionals as indicated for the patient's care. ED Course Orders Procedure Category Date Status Time Lidocaine Hcl 1% 20ml PHA 11/04/25 Complete Vial (Lidocaine Hc 18:00 Laceration Tray Set CPOE 11/04/25 Transmitted Up (Er) 17:38 Tetanus,Diphtheria PHA 11/04/25 Complete Tox [Adult] (Diphther 18:30 Current Medications Medications (Trade) Dose Ordered Sig/Abbe Route PRN Reason Start Time Stop Time Status Last Admin Dose Admin Lidocaine HCl (Lidocaine HCl 1% 20ml Vial) ONCE ONCE INJ 11/04/25 18:00 11/04/25 18:01 DC 11/04/25 17:43 Tetanus/ Diphtheria Toxoids Adsorbed (DiphthERIA-teTANUS TOXOID [ADULT]/ DECAVAC) 0.5 ml ONCE ONCE IM 11/04/25 18:30 11/04/25 18:31 DC 11/04/25 18:30 Vital Signs Date Time Temp Pulse Resp B/P (MAP) Pulse Ox O2 Delivery O2 Flow Rate FiO2 11/04/25 17:27 98.2 82 16 142/77 98 Room Air* 0 21 11/04/25 17:15 98.2 88 16 151/87 98 Room Air 0 Procedure Dictation Procedure Name: Laceration Repair Indication: Reduce risk of infection Location: 2 cm linear laceration to the dorsal aspect of the left 2nd digit Pre-Procedure Diagnosis: Laceration Post-Procedure Diagnosis: Repaired Laceration Informed consent was obtained before procedure started. PROCEDURE: The appropriate timeout was taken. The area was prepped and draped in the usual sterile fashion. Local anesthesia was achieved using 0.5cc of Lidocaine 1% without epinephrine. The wound was copiously irrigated. 3 5-0 Ethilon simple interrupted sutures were placed. Estimated blood loss was less than 0.5 mL. A dressing was applied to the area and anticipatory guidance, as well as standard post-procedure care, was explained. Return precautions are given. The patient tolerated the procedure well without complications. Follow-up visit set for suture removal and evaluation of the laceration. DX & DISP Disposition: Discharge Departure Impression: Primary Impression: Laceration of left index finger Condition: Stable Scripts Mupirocin (Mupirocin Ointment) 2 % Oint 1 APPL TP TID for 5 Days, #15 GM 0 Refills apply to affected area(s) Prov: CHRIS ALVARADO PAC 11/04/25 Additional Instructions: Your laceration was successfully repaired with three sutures. These will need to be removed in 7-10 days. You may either return to the ER or follow up with the primary care doctor for suture removal. I have given you a prescription for topical mupirocin. Apply this to the a ffected area if you noticed signs of infection. Referrals: RONNELL VILLALPANDO DO (PCP) I have reviewed the case, and I agree with, Diagnosis and Plan I performed the substantive portion of the visit. I have reviewed and personally made and approve the management plan that is documented in the note by myself or the MINDY. I acknowledge for responsibility for the patient's management plan. CHRIS ALVARADO Nov 04, 2025 18:14 JOHNNY CARVAJAL DO Nov 04, 2025 18:57
--- NOTE | 2025-11-04 18:38 | NUR ---
Splint applied to 2nd finger, pt tolerated well
== END 2025-11-04 18:40 | disposition home or self-care (01) ==
LOC: EDH 17:10
DX: S61.211A Laceration without foreign body of left index finger without damage to nail, initial encounter (principal); I10 Essential (primary) hypertension; F41.9 Anxiety disorder, unspecified; F32.A Depression, unspecified; Z79.82 Long term (current) use of aspirin; Z79.899 Other long term (current) drug therapy; Z90.49 Acquired absence of other specified parts of digestive tract; Z90.710 Acquired absence of both cervix and uterus; W26.8XXA Contact with other sharp object(s), not elsewhere classified, initial encounter; Y93.G1 Activity, food preparation and clean up; Y92.89 Other specified places as the place of occurrence of the external cause; Y99.8 Other external cause status
CPT/HCPCS: 99284; 90714; 90471; 12001; J2003

== ENCOUNTER 2025-11-13 18:51 | Emergency (ER) | payer BC ==
[~2025-11-13] VITALS: Ht 167.6 cm; Wt 99.8 kg
[~2025-11-13 18:51] MED LIST changes: +MUPI22OI2 TP
--- NOTE | 2025-11-13 19:58 | ERN ---
General Chief Complaint: Suture/Staple Removal Stated Complaint: SUTURE REMOVAL Time Seen by MD: 19:39 History of Present Illness Initial Comments Here for evaluation of right 2nd finger suture removal. Patient states that she was seen about a week ago for a laceration to her right 2nd finger after cutting chicken and slicing her hand. Denies any fever cough shortness breath nausea vomiting diarrhea. Allergies: Coded Allergies: No Known Allergies (Unverified Allergy, Unknown, 08/18/24) Home Meds Active Scripts Mupirocin (Mupirocin Ointment) 2 % Oint, 1 APPL TP TID for 5 Days, #15 GM 0 Refills apply to affected area(s) Prov:CHRIS ALVARADO PAC 11/04/25 Tramadol HCl/Acetaminophen (Tramadol-Acetaminophn 37.5-325) 37.5 Mg-325 Mg Tablet, 1 TAB PO Q4HPRN PRN for pain for 2 Days, #12 TAB 0 Refills Prov:JILL ODEN MD 01/11/25 Metronidazole (Metronidazole) 500 Mg Tablet, 1 TAB PO TID for 7 Days, #30 TAB 0 Refills Prov:JILL ODEN MD 01/11/25 Levofloxacin (Levofloxacin) 500 Mg Tablet, 1 TAB PO DAILY for 7 Days, #7 TAB 0 Refills Prov:JILL ODEN MD 01/11/25 Cyclobenzaprine HCl (Cyclobenzaprine HCl) 10 Mg Tablet, 1 TAB PO TID for muscle spasms for 10 Days, #30 TAB 0 Refills Prov:JOSI HAYNES [facility] 10/06/24 Amlodipine Besylate (Norvasc 5Mg Tab) 5 Mg Tablet, 5 MG PO DAILY for 30 Days, #30 TAB Prov:SUKUMAR HOLLIS [facility] 08/24/24 Reported Medications Aspirin (Aspirin EC) 81 Mg Tablet.dr, 1 TAB PO DAILY for 30 Days, #30 TAB 0 Refills 02/06/25 Omeprazole (Omeprazole) 40 Mg Capsule.dr, 1 CAP PO DAILY for 30 Days, #30 CAP 0 Refills 02/06/25 Tramadol HCl (Tramadol HCl ER) 100 Mg Tab.er.24h, 50 MG PO TID PRN for PAIN LEVEL 4 TO 6, TAB 02/06/25 Losartan/Hydrochlorothiazide (Losartan-Hctz 50-12.5 mg Tab) 50 Mg-12.5 Mg Tablet, 1 TAB PO DAILY for 30 Days, #30 TAB 0 Refills 02/06/25 Buspirone HCl (Buspirone HCl) 15 Mg Tablet, 1 TAB PO BID for 30 Days, #60 TAB 0 Refills 02/06/25 Duloxetine HCl (Duloxetine HCl) 30 Mg Capsule.dr, 1 CAP PO BID for 30 Days, #30 CAP 0 Refills 02/06/25 Metoprolol Succinate (Metoprolol Succinate) 25 Mg Tab.er.24h, 1 TAB PO DAILY for 30 Days, #30 TAB 0 Refills 02/06/25 Amlodipine Besylate (Amlodipine Besylate) 5 Mg Tablet, 1 TAB PO DAILY for 30 Days, #30 TAB 0 Refills 02/06/25 Aspirin (ASPIRIN 81 MG ECTAB) 81 Mg Ectab, 81 MG PO DAILY, TAB.EC 08/18/24 Duloxetine HCl (Duloxetine HCl) 30 Mg Capsule.dr, 30 MG PO BID, CAP 08/18/24 Metoprolol Succinate (Metoprolol Succinate) 25 Mg Tab.er.24h, 25 MG PO DAILY, TAB 08/18/24 Omeprazole (Omeprazole) 40 Mg Capsule.dr, 40 MG PO DAILY, CAP 08/18/24 Buspirone HCl (Buspirone HCl) 15 Mg Tablet, 15 MG PO BID, TAB 08/18/24 Losartan/Hydrochlorothiazide (Losartan-Hctz 50-12.5 mg Tab) 50 Mg-12.5 Mg Tablet, 1 EACH PO DAILY, TAB 08/18/24 Past Medical History Past Medical History: Anxiety, Depression, Diverticulitis, Diverticulosis, Hypertension Medical History Other: E-COLI Past Surgical History: Hysterectomy, Cholecystectomy, Other, BTL Surgical History Other: COLON RESECTION Female( History) History: Not Applicable Physical Exam Physical Exam Dictation GENERAL APPEARANCE NAD, activity normal for age, well developed/ well nourished, no cyanosis, pallor, or diaphoresis. EYES lids/conjunctiva normal. EARS/NOSE/THROAT Mucous membranes moist, nares normal, lips/teeth normal uvula midline without oral pharyngeal erythema, exudate or swelling TMs normal bilaterally. No lymphangitis/lymphedema. HEAD/NECK normocephalic atraumatic, no facial trauma, neck is supple. RESPIRATORY respiratory effort normal, speaks in full sentences, no tripod position, no accessory muscle use. Lungs clear to auscultation without rhonchi, wheezes, rales CARDIAC Regular rate and rhythm, no edema. ABDOMINAL Soft, ND/NT. No evidence of fluid wave. No pulsatile masses on exam, rebound tenderness, Keita sign or pain over Mcburney's point. MUSCLES/EXTREMITIES right 2nd finger with three Ethibond sutures No abnormal range of motion, no swelling. SKIN Warm, pink and dry. No rashes, dermatoses, petechiae or lesions. NEUROLOGICAL Speech is clear and appropriate. Normal level of consciousness. Gait and coordination are normal. 5/5 strength in all extremities. PSYCH Normal mood and affect. Judgement/competence is appropriate MDM 55-year-old female here for evaluation of sutures to the right 2nd finger. Sutures were removed. We will discharge home at this time. Advised on concerning signs and symptoms for which to return to emergency room for ED Course Vital Signs Date Time Temp Pulse Resp B/P (MAP) Pulse Ox O2 Delivery O2 Flow Rate FiO2 11/13/25 18:52 97.9 74 16 102/54 97 Room Air 0 Procedure Dictation Suture removal performed with suture removal kit. Three sutures removed. Patient tolerated procedure well DX & DISP Disposition: Discharge Departure Impression: Primary Impression: Encounter for removal of sutures Condition: Stable Referrals: RONNELL VILLALPANDO DO (PCP) SARAH OWEN MD Nov 13, 2025 19:57
[2025-11-13 20:20] VITALS: BP 112/64; PULSE 72; RESP 18; TEMP 98; O2SAT 100
--- NOTE | 2025-11-13 20:20 | NUR ---
SUTURE REMOVAL DONE BY ER PROVIDER, DR OWEN
== END 2025-11-13 20:26 | disposition home or self-care (01) ==
LOC: EDH 18:51
DX: S61.210D Laceration without foreign body of right index finger without damage to nail, subsequent encounter (principal); F41.9 Anxiety disorder, unspecified; I10 Essential (primary) hypertension; Z79.82 Long term (current) use of aspirin; Z79.899 Other long term (current) drug therapy; Z90.49 Acquired absence of other specified parts of digestive tract; Z90.710 Acquired absence of both cervix and uterus; X58.XXXD Exposure to other specified factors, subsequent encounter
CPT/HCPCS: 99282